=== PATIENT | male | born 1960 | race Caucasian/White ===

== ENCOUNTER 2017-12-28 12:27 | Emergency (ER) | payer MEDICARE ==
[2017-12-28 12:40] VITALS: TEMP 98.8; BMI 34.5
[2017-12-28] MEDS ORDERED: ASPIRIN 81 MG CHEWABLE TABLETS PO ONE (12:53)
--- NOTE | 2017-12-28 13:11 | PDOC ---
History of Present Illness - General Chief Complaint: Chest Pain Stated Complaint: CHEST PAIN Time Seen by Provider: 12/28/17 12:42 History Source: Patient Exam Limitations: No Limitations - History of Present Illness Initial Comments: 12/28/17 13:01 Patient is a 57M with history of HTN, DM, HLD here today complaining of chronic intermittent chest pain, worsening over the past 7 days. He describes the pain as a pressure over his chest without any known exacerbating or relieving factors. Denies shortness of breath, endorses episodes of diaphoresis. Pain lasts a few minutes before self-resolving. Patient had stress test done on showed no evidence of exercise induced ischemia with EF of 67%. Patient states that flew in from [place] 3 weeks ago. Denies fevers, chills, nausea, vomiting. Denies leg swelling and history of prior blood clots. Takes baby aspirin everyday. Past History - Past Medical History Allergies/Adverse Reactions: Allergies Allergy/AdvReac Type Severity Reaction Status Date / Time No Known Allergies Allergy Verified 12/28/17 12:37 Home Medications: Ambulatory Orders Valsartan/Hydrochlorothiazide [Diovan Hct 160-12.5 mg Tablet] 1 combo PO DAILY 03/08/13 Aspirin [ASA -] 81 mg PO DAILY #0 tab.chew 03/12/13 Atorvastatin Ca [Lipitor] 40 mg PO HS #0 tablet 03/12/13 Canagliflozin [Invokana] 100 mg PO DAILY 12/28/17 Insulin Glargine,Hum.rec.anlog [Toujeo Solostar] 60 unit SQ DAILY 12/28/17 Insulin Lispro [Humalog] 20 unit SQ BID 12/28/17 Linagliptin/Metformin HCl [Jentadueto 2.5 mg-500 mg Tab] 1 each PO DAILY Cardiac Disorders: Yes (ENLARGED HEART) COPD: No Diabetes: Yes Disorders: Yes (Kidney Stones) HTN: Yes Hypercholesterolemia: Yes - Surgical History Orthopedic Surgery: Yes (R. Rotator cuff) - Suicide/Smoking/Psychosocial Hx Smoking Status: No Smoking History: Never smoked Have you smoked in the past 12 months: No Number of Cigarettes Smoked Daily: 0 Hx Alcohol Use: No Drug/Substance Use Hx: No Substance Use Type: None Hx Substance Use Treatment: No Review of Systems - Review of Systems Comments:: 12/28/17 13:11 GENERAL/CONSTITUTIONAL: No fever or chills. No weakness. HEAD, EYES, EARS, NOSE AND THROAT: No change in vision. No sore throat. CARDIOVASCULAR: Positive for chest pain. Negative for shortness of breath RESPIRATORY: No cough, wheezing, or hemoptysis. GASTROINTESTINAL: No nausea, vomiting, diarrhea or constipation. GENITOURINARY: No dysuria, frequency, or change in urination. MUSCULOSKELETAL: No joint or muscle swelling or pain. No neck or back pain. SKIN: No rash NEUROLOGIC: No headache, vertigo, loss of consciousness, or change in strength/ sensation. HEMATOLOGIC/LYMPHATIC: No anemia, easy bleeding, or history of blood clots. ALLERGIC/IMMUNOLOGIC: No hives or skin allergy. *Physical Exam - Vital Signs Last Vital Signs Temp Pulse Resp BP Pulse Ox 98.8 F 80 18 132/83 98 12/28/17 12:37 12/28/17 12:37 12/28/17 12:37 12/28/17 12:37 12/28/17 12:37 - Physical Exam Comments: 12/28/17 13:11 GENERAL: Awake, alert, and fully oriented, in no acute distress HEAD: No signs of trauma, normocephalic, atraumatic EYES: PERRLA, EOMI, sclera anicteric, conjunctiva clear ENT: Auricles normal inspection, hearing grossly normal, nares patent, oropharynx clear without exudates. Moist mucosa NECK: Normal ROM, supple, no lymphadenopathy, JVD, or masses LUNGS: No distress, speaks full sentences, clear to auscultation bilaterally HEART: Regular rate and rhythm, normal S1 and S2, no murmurs, rubs or gallops, peripheral pulses normal and equal bilaterally. ABDOMEN: Soft, nontender, normoactive bowel sounds. No guarding, no rebound. No masses EXTREMITIES: Normal inspection, Normal range of motion, no edema. No clubbing or cyanosis. NEUROLOGICAL: Cranial nerves II through XII grossly intact. Normal speech, normal gait, no focal sensorimotor deficits SKIN: Warm, Dry, normal turgor, no rashes or lesions noted. Heart Score/ECG Review - History History: Slightly suspicious - Electrocardiogram EKG: Normal - Age Age: 45-65 - Risk Factors Risk Factors Heart Score: Yes Hx Hypercholesterolemia, Yes Hx Hypertension, Yes Hx Diabetes Based on the list above the patient has:: >/=3 risk factors or Hx atherosclerotic disease - Troponin Troponin: </= normal limit - Score Heart Score - Total: 3 ED Treatment Course - LABORATORY CBC & Chemistry Diagram: 12/28/17 13:06 12/28/17 13:06 - RADIOLOGY Radiology Studies Ordered: Category Date Time Status CHEST X-RAY PORTABLE* [RAD] Stat Radiology 12/28/17 12:54 Ordered Medical Decision Making - Medical Decision Making 12/28/17 13:12 Patient is 57M with history of HTN, HLD, DM here today complaining of chronic intermittent chest pain. Story not typical. Vital signs stable and normal. Patient had prior stress test two weeks ago that was normal. DDx includes, but is not limited to: ACS, arrhythmia, PE. Unable to PERC out due to age, Well's low risk, recent travel. Will d-dimer. EKG shows normal sinus rhythm with rate of 88. No S1Q3T3, no signs of right heart strain. No st elevations/depressions. No significant t wave abnormalities. Normal axis. Normal WI/QRS/QTc intervals. Reassuring EKG. 12/28/17 14:26 Laboratory Tests 12/28/17 12/28/17 12/28/17 13:06 13:06 13:06 WBC 9.7 Hgb 14.7 D Plt Count 270 D D-Dimer 322 Troponin I < 0.02 CBC normal. D-dimer negative. Troponin undetectable. Will discharge patient with return precautions. *DC/Admit/Observation/Transfer Diagnosis at time of Disposition: Chest pain - Discharge Dispostion Condition at time of disposition: Good Decision to Admit order: No - Referrals Referrals: Randy Crowley [Primary Care Provider] - - Patient Instructions Printed Discharge Instructions: DI for Chest Pain Additional Instructions: Please return if you have any new, worsening or concerning symptoms, especially increasing pain or shortness of breath. Please follow up with your primary care physician. - Post Discharge Activity
[2017-12-28] MEDS ORDERED: ASPIRIN 81 MG CHEWABLE TABLETS ONE (13:12)
[2017-12-28 13:23] LABS: BASO % 0.5 % (0-2.0); EOS % 0.7 % (0-4.5); HEMOGLOBIN 14.7 GM/dL (11.7-16.9); LYMPH % 28.8 % (8-40); MCH 29.3 pg (25.7-33.7); MCHC 34.1 g/dl (32.0-35.9); MEAN CELL VOLUME 85.9 fl (80-96); MEAN PLT VOLUME 9.2 fl (7.5-11.1); MONO % 8.2 % (3.8-10.2); NEUT % 61.8 % (42.8-82.8); PLATELET COUNT 270 K/MM3 (134-434); RBC 5.01 M/mm3 (4.00-5.60); RDW 14.3 % (11.9-15.9); WHITE BLOOD COUNT 9.7 K/mm3 (4.0-10.0)
[2017-12-28 13:48] LABS: INR 1.02 (0.82-1.09); PROTHROMBIN TIME (PATIENT) 11.5 SEC (9.7-13.0)
[2017-12-28 13:55] LABS: ALBUMIN 4.3 g/dl (3.4-5.0); ALK PHOS 71 U/L (45-117); ANION GAP 11 (8-16); BILIRUBIN,TOTAL 0.6 mg/dL (0.2-1.0); CALCIUM 9.2 mg/dL (8.5-10.1); CHLORIDE 94 mmol/L (98-107); CO2 28 mmol/L (21-32); CREATININE 0.8 mg/dL (0.7-1.3); GLUCOSE,RANDOM 147 mg/dL (74-106); MAGNESIUM 2.4 mg/dL (1.8-2.4); POTASSIUM 4.3 mmol/L (3.5-5.1); SGOT/AST 24 U/L (15-37); SGPT/ALT 37 U/L (12-78); SODIUM 133 mmol/L (136-145); TOT PROT 8.3 g/dl (6.4-8.2)
[2017-12-28 14:03] LABS: BLOOD UREA NITROGEN 18 mg/dL (7-18)
--- NOTE | 2017-12-28 14:45 | PDOC ---
Attending Attestation - HPI HPI: 12/28/17 14:51 The patient is a 57 year old year old male with history of hypertension, hyperlidemia, DM, who presents to the ED complaining of approximately 7 days of chest pain. Chest pain is intermittent with episodes lasting several minutes, worse with bending over and associated with nausea and diaphoresis, and improved with walking. States this has been an ongoing issue. He was sent for a stress test by a direct care specialist and is awaiting his results. No fever or chills. No vomiting. No peripheral edema or palpitations. No history of DVT. He states he did recently return from [place]. - Physicial Exam PE: 12/28/17 14:54 Vitals: Triage vital signs reviewed General Appearance: No acute distress, well nourished, well developed Head: Atraumatic Eyes: Pupils equal reactive round, extraocular movement intact Neck: Supple; No nuchal rigidity Chest Wall: Nontender Cardiac: Regular rate and rhythm, no murmurs, no rubs, no gallops Lungs: Clear to auscultation bilateral, good air movement bilaterally Abdomen: Soft, nondistended, normal bowel sounds, nontender to palpation Extremities: Full range of motion to all extremities, no cyanosis, clubbing, or edema Skin: Warm and dry, no rashes or lesions, no rash, no petechiae Neuro: AOX3; Cranial Nerves 2-12 grossly intact, Strength intact to all extremities, Sensation intact to all extremities, gait normal Psych: Normal mood, normal affect - Medical Decision Making 12/28/17 14:55 The patient is a 57 year old year old male with history of hypertension, hyperlidemia, DM, who presents to the ED complaining of approximately 7 days of chest pain. Stress test from 12/16/17 reviewed: normal perfusion with no evidence of stress induced ischemia. Chest x-ray demonstrates no acute pathology. Labs reviewed. Documentation prepared by Solange Phelan, acting as medical record specialist for John Hernandez MD. <Solange Phelan - Last Filed: 12/28/17 14:56> - Resident Resident Name: Rom Regan - ED Attending Attestation I have performed the following: I have examined & evaluated the patient, The case was reviewed & discussed with the resident, I agree w/resident's findings & plan, Exceptions are as noted - Medical Decision Making 12/28/17 17:15 Heart score 3. D-dimer negative. Well-appearing no apparent distress mild chest discomfort when bending over. Improves with exertion. Very low suspicion for ACS or PE Patient's recent stress test reviewed also results were within normal limits. Findings, the need for follow-up, strict return instructions discussed with patient. <John Hernandez - Last Filed: 12/28/17 17:16> Heart Score/ECG Review - ECG Impressions Comment:: 12/28/17 17:15 EKG performed at 1237. Demonstrates sinus rhythm 88 bpm. MO 154 QRS 86, QTC 464. No ST elevations no T-wave inversions. Normal axis. Interpreted by me. <John Hernandez - Last Filed: 12/28/17 17:16>
[2017-12-28 14:52] VITALS: BP 133/87; PULSE 85
--- NOTE | 2017-12-28 20:44 | EKG ---
Test Reason : Blood Pressure : / mmHG Vent. Rate : 088 BPM Atrial Rate : 088 BPM P-R Int : 154 ms QRS Dur : 086 ms QT Int : 384 ms P-R-T Axes : 021 059 031 degrees QTc Int : 464 ms NORMAL SINUS RHYTHM WITH SINUS ARRHYTHMIA CANNOT RULE OUT ANTERIOR INFARCT , AGE UNDETERMINED ABNORMAL ECG WHEN COMPARED WITH ECG OF 09-MAR-2013 15:34, QT HAS LENGTHENED Confirmed by YOLANDE LYLES, EZEKIEL ([id number]) on 12/28/2017 8:44:04 PM Referred By: Confirmed By:EZEKIEL LANIER MD
== END 2017-12-28 14:52 | disposition home or self-care (01) ==
LOC: JER 12:27
DX: R07.9 Chest pain, unspecified (principal); I10 Essential (primary) hypertension; E78.00 Pure hypercholesterolemia, unspecified; E11.9 Type 2 diabetes mellitus without complications; Z79.4 Long term (current) use of insulin; Z79.84 Long term (current) use of oral hypoglycemic drugs; I51.7 Cardiomegaly; Z87.442 Personal history of urinary calculi
CPT/HCPCS: 36415; 71045-TC-FY; 80053; 82550; 82553; 83735; 84484; 85025; 85379; 85610; 93005; 93010; 99283-25

== ENCOUNTER 2019-02-01 11:56 | Inpatient (IN) | payer MEDICARE, OTHER ==
--- NOTE | 2019-02-01 13:06 | PDOC ---
History of Present Illness - General Chief Complaint: Urinary Problem Stated Complaint: SENT BY PCP Time Seen by Provider: 02/01/19 13:04 History Source: Patient Exam Limitations: No Limitations - History of Present Illness Initial Comments: 58 yo M history HTN, HL, DM, urethral problem (unclear on his official diagnosis ) presents with L testicular pain for the past 3 days. He states the pain is severe when he stands up, but improves when he lies down. Denies any injury. No prior similar symptoms. He has history of urinary tract infections in the past, has had cystoscopies in the past to dilate (poss urethal stricture?). He states he has not had any difficulty urinating recently, but that his urine has been malodorous. He states his pain also started soon after lifting something heavy, concerned that he may have developed a hernia. Denies dysuria, fever, back pain. He has been taking tylenol for the pain, which helps as long as he does not stand up. No prior similar symptoms. Past History - Past Medical History Allergies/Adverse Reactions: Allergies Allergy/AdvReac Type Severity Reaction Status Date / Time No Known Allergies Allergy Verified 02/01/19 16:22 Home Medications: Ambulatory Orders Atorvastatin Ca [Lipitor] 40 mg PO HS 02/01/19 Finasteride [Proscar -] 5 mg PO DAILY 02/01/19 Icosapent Ethyl [Vascepa] 1 gm PO DAILY 02/01/19 Insulin Glargine,Hum.rec.anlog [Basaglar Kwikpen U-100] 60 unit SQ DAILY Insulin Lispro [Humalog] 15 unit SQ AC 02/01/19 Olmesartan Medoxomil [Benicar (Nf)] 40 mg PO DAILY 02/01/19 Cardiac Disorders: Yes (ENLARGED HEART) COPD: No Diabetes: Yes Disorders: Yes (Kidney Stones) HTN: Yes Hypercholesterolemia: Yes - Surgical History Orthopedic Surgery: Yes (R. Rotator cuff) - Suicide/Smoking/Psychosocial Hx Smoking Status: No Smoking History: Never smoked Have you smoked in the past 12 months: No Number of Cigarettes Smoked Daily: 0 Hx Alcohol Use: No Drug/Substance Use Hx: No Substance Use Type: None Hx Substance Use Treatment: No Review of Systems - Review of Systems Able to Perform ROS?: Yes Comments:: GENERAL/CONSTITUTIONAL: No fever or chills. No weakness. HEAD, EYES, EARS, NOSE AND THROAT: No change in vision. No ear pain or discharge. No sore throat. CARDIOVASCULAR: No chest pain or shortness of breath. RESPIRATORY: No cough, wheezing, or hemoptysis. GASTROINTESTINAL: No nausea, vomiting, diarrhea or constipation. GENITOURINARY: No dysuria, frequency. +L testicular pain. MUSCULOSKELETAL: No joint or muscle swelling or pain. No neck or back pain. SKIN: No rash. NEUROLOGIC: No headache, vertigo, loss of consciousness, or change in strength/ sensation. ENDOCRINE: No increased thirst. No abnormal weight change. HEMATOLOGIC/LYMPHATIC: No anemia, easy bleeding, or history of blood clots. ALLERGIC/IMMUNOLOGIC: No hives or skin allergy. *Physical Exam - Vital Signs Last Vital Signs Temp Pulse Resp BP Pulse Ox 98.6 F 82 18 132/75 97 02/01/19 12:16 02/01/19 12:16 02/01/19 12:16 02/01/19 12:16 02/01/19 12:16 - Physical Exam Comments: GENERAL: Awake, alert, and fully oriented, in no acute distress HEAD: No signs of trauma EYES: PERRLA, EOMI, sclera anicteric, conjunctiva clear ENT: Auricles normal inspection, hearing grossly normal, nares patent, oropharynx clear without exudates. Moist mucosa NECK: Normal ROM, supple, no lymphadenopathy, JVD, or masses LUNGS: Breath sounds equal, clear to auscultation bilaterally. No wheezes, and no crackles HEART: Regular rate and rhythm, normal S1 and S2, no murmurs, rubs or gallops ABDOMEN: Soft, nontender, normoactive bowel sounds. No guarding, no rebound. No masses EXTREMITIES: Normal range of motion, no edema. No clubbing or cyanosis. No cords, erythema, or tenderness NEUROLOGICAL: Cranial nerves II through XII grossly intact. Normal speech, normal gait. Motor and sensation intact SKIN: Warm, Dry, normal turgor, no rashes or lesions noted : +L testicular swelling, erythema, and tenderness. No masses palpated. No palpable hernia masses. ED Treatment Course - LABORATORY CBC & Chemistry Diagram: 02/04/19 07:17 02/04/19 07:17 Medical Decision Making - Medical Decision Making 02/01/19 14:24 Pt with L testicular pain and swelling, history of prior UTIs. High suspicion for epididymitis. Will obtain ultrasound to further evaluate. 02/01/19 15:23 Pt with positive UA, will give rocephin. Awaiting sono results. 02/01/19 17:09 Pt care d/w Dr. Littlejohn. Will admit for epididymitis, as patient is unable to stand due to severe pain. Will give IV abx. *DC/Admit/Observation/Transfer Diagnosis at time of Disposition: Acute epididymitis - Discharge Dispostion Condition at time of disposition: Stable Decision to Admit order: Yes - Referrals - Patient Instructions - Post Discharge Activity
[2019-02-01] MEDS ORDERED: ACETAMINOPHEN 1000 MG/100 ML VIAL (NON FORMULARY) IVPB ONE (14:24)
[2019-02-01 14:41] LABS: EPI CELLS 2.7 /HPF (0-5/HPF); HYALINE CASTS 3 /lpf (0-8); URINE APPEARANCE CLOUDY; URINE BACTERIA 465.8 /hpf (NEGATIVE); URINE BILIRUBIN NEGATIVE (NEGATIVE); URINE COLOR YELLOW; URINE GLUCOSE (UA) 1+ (NEGATIVE); URINE KETONE TRACE (NEGATIVE); URINE LEUK ESTERASE 3+ (NEGATIVE); URINE NITRITE POSITIVE (NEGATIVE); URINE PROTEIN 2+ (NEGATIVE); URINE RBC 13 /hpf (0-4); URINE WBC 535 /hpf (0-5)
[2019-02-01] MEDS ORDERED: ACETAMINOPHEN INJECTION 100 ML IVPB ONE (14:49)
[2019-02-01 15:01] LABS: BASO % 1.3 % (0-2.0); EOS % 0.1 % (0-4.5); HEMATOCRIT 40.8 % (35.4-49); HEMOGLOBIN 13.7 GM/dL (11.7-16.9); LYMPH % 12.1 % (8-40); MCHC 33.5 g/dl (32.0-35.9); MEAN CELL VOLUME 86.6 fl (80-96); MEAN PLT VOLUME 8.5 fl (7.5-11.1); MONO % 6.4 % (3.8-10.2); NEUT % 80.1 % (42.8-82.8); PLATELET COUNT 248 K/MM3 (134-434); RBC 4.71 M/mm3 (4.00-5.60); RDW 14.1 % (11.9-15.9); WHITE BLOOD COUNT 15.4 K/mm3 (4.0-10.0)
[2019-02-01 15:02] LABS: YEAST NONE SEEN (NEGATIVE)
[2019-02-01 15:15] LABS: INR 1.17 (0.83-1.09); PROTHROMBIN TIME (PATIENT) 13.8 SEC (9.7-13.0)
[2019-02-01 15:23] LABS: ALBUMIN 3.7 g/dl (3.4-5.0); BILIRUBIN,TOTAL 0.6 mg/dL (0.2-1); BLOOD UREA NITROGEN 19.4 mg/dL (7-18); CALCIUM 9.4 mg/dL (8.5-10.1); CREATININE 0.9 mg/dL (0.55-1.3); POTASSIUM 4.2 mmol/L (3.5-5.1); TOT PROT 8.2 g/dl (6.4-8.2)
[2019-02-01] MEDS ORDERED: CEFTRIAXONE 1 GM in DEXTROSE 5%-WATER - 50 ML IVPB ONE ×2 (15:23→22:39)
[2019-02-01] MEDS ORDERED: CEFTRIAXONE 1 GM/50 ML BAG ONE (15:39)
[2019-02-01] MEDS ORDERED: morphine SULFATE 4 MG/ML VIAL IVPUSH PRN (17:21)
--- NOTE | 2019-02-01 17:25 | HP ---
Admitting History and Physical - Primary Care Physician PCP: Soledad Littlejohn - Admission Chief Complaint: TESTICULAR PAIN FOR 3 DAYS WITH FLANK PAIN History of Present Illness: 58 Y/O MALE HISTORY OF DM/HTN/LIPIDEMIA AND MORBID OBESITY HERE WITH 3 DAYS OF EXCRUCIATING TESTICULAR/FLANK PAIN SINCE FRIDAY NIGHT. PATIENT REFUSED TO COME TO [facility] UNTIL HE SPOKE TO ME THIS MORNING WHERE I DIRECTED HIM TO THE E.R. RADIOLOGY TESTING SHOWS EPIDIDIMITIS AND WAS STARTED ON IV ABX. History Source: Patient Limitations to Obtaining History: No Limitations - Past Medical History Cardiovascular: Yes: HTN, Hyperlipdemia Renal/: Yes: Other Endocrine: Yes: Diabetes Mellitus - Smoking History Smoking history: Never smoked Have you smoked in the past 12 months: No Aproximately how many cigarettes per day: 0 - Alcohol/Substance Use Hx Alcohol Use: No Home Medications - Allergies Allergies/Adverse Reactions: Allergies Allergy/AdvReac Type Severity Reaction Status Date / Time No Known Allergies Allergy Verified 02/01/19 16:22 - Home Medications Home Medications: Ambulatory Orders Atorvastatin Ca [Lipitor] 40 mg PO HS 02/01/19 Finasteride [Proscar -] 5 mg PO DAILY 02/01/19 Icosapent Ethyl [Vascepa] 1 gm PO DAILY 02/01/19 Insulin Glargine,Hum.rec.anlog [Basaglar Kwikpen U-100] 60 unit SQ DAILY Insulin Lispro [Humalog] 15 unit SQ AC 02/01/19 Olmesartan Medoxomil [Benicar (Nf)] 40 mg PO DAILY 02/01/19 Review of Systems - Review of Systems Constitutional: reports: Weakness Neck: reports: No Symptoms Cardiovascular: reports: No Symptoms Respiratory: reports: No Symptoms Gastrointestinal: reports: Abdominal Pain Genitourinary: reports: Testicular Pain Musculoskeletal: reports: Back Pain Integumentary: reports: No Symptoms Neurological: reports: No Symptoms Endocrine: reports: No Symptoms Hematology/Lymphatic: reports: No Symptoms Psychiatric: reports: No Symptoms Physical Examination Vital Signs: Vital Signs Temperature 98.6 F 02/01/19 12:16 Pulse Rate 82 02/01/19 12:16 Respiratory Rate 18 02/01/19 12:16 Blood Pressure 132/75 02/01/19 12:16 O2 Sat by Pulse Oximetry (%) 97 02/01/19 12:16 Constitutional: Yes: Severe Distress Eyes: Yes: WNL HENT: Yes: WNL Neck: Yes: WNL Cardiovascular: Yes: WNL Respiratory: Yes: WNL Gastrointestinal: Yes: Tenderness ...Rectal Exam: Yes: WNL Renal/: Yes: CVA Tenderness - Right, Scrotal Edema Musculoskeletal: Yes: Back Pain Edema: No Integumentary: Yes: WNL Wound/Incision: Yes: Clean/Dry Neurological: Yes: WNL ...Motor Strength: WNL Psychiatric: Yes: WNL Labs: CBC, BMP 02/01/19 14:40 02/01/19 14:48 Problem List - Problems (1) Acute epididymitis Code(s): N45.1 - EPIDIDYMITIS Assessment/Plan IV CEFTRIAXONE 2GM DAILY ID CONSULT, CULTURES CHECKED PAIN CONTROL CONSULT DVT PROPHYLAXIS DM CONTROL, BGM
[2019-02-01] MEDS ORDERED: ACETAMINOPHEN 325 MG TABLET (FP) ONE (20:51)
[2019-02-01] MEDS: ACETAMINOPHEN 325 MG TABLET (FP) PO PRN (20:54)
[2019-02-01] MEDS ORDERED: DEXTROSE 5%-WATER - 50 ML IVPB ONE (23:15)
[2019-02-01] MEDS ORDERED: cefTRIAXone SODIUM 1 GM VIAL ONE (23:15)
[2019-02-02] MEDS: INSULIN SLIDING SCALE (NOVOLOG) 1 VIAL SQ SCH ×5 (00:01→21:40)
[2019-02-02] MEDS: ATORVASTATIN CA 40 MG TABLET (FP) PO SCH ×2 (00:01→21:41)
[2019-02-02 00:34] VITALS: BMI 31.9
--- NOTE | 2019-02-02 07:03 | PN ---
Progress Note, Physician Chief Complaint: AWAKE ALERT FEVERS DOCUMENTED OVERNIGHT PATIENT AWAKE ALERT FEELS PRESSURE OVER LEFT TESTICLE - Current Medication List Current Medications: Active Medications Acetaminophen (Tylenol -) 650 mg PO Q6H PRN PRN Reason: PAIN OR FEVER Last Admin: 02/01/19 20:54 Dose: 650 mg Atorvastatin Calcium (Lipitor -) 40 mg PO HS DENIS Last Admin: 02/02/19 00:01 Dose: 40 mg Finasteride (Proscar -) 5 mg PO DAILY [facility] Heparin Sodium (Porcine) (Heparin -) 5,000 unit SQ BID DENIS Last Admin: 02/02/19 00:00 Dose: 5,000 unit Ceftriaxone Sodium 2 gm/ (Dextrose) 100 mls @ 200 mls/hr IVPB DAILY [facility]; Protocol Insulin Aspart (Novolog Vial Sliding Scale -) 1 vial SQ ACHS [facility]; Protocol Last Admin: 02/02/19 06:22 Dose: 4 units Insulin Detemir (Levemir Vial) 50 units SQ HS [facility] Last Admin: 02/02/19 00:00 Dose: Not Given Morphine Sulfate (Morphine Sulfate) 4 mg IVPUSH Q6H PRN PRN Reason: PAIN LEVEL 6-10 Last Admin: 02/02/19 06:55 Dose: 4 mg Valsartan (Diovan -) 320 mg PO DAILY [facility] - Objective Vital Signs: Vital Signs Temperature 98.9 F 02/01/19 22:00 Pulse Rate 70 02/01/19 22:00 Respiratory Rate 20 02/01/19 22:00 Blood Pressure 124/69 02/01/19 22:00 O2 Sat by Pulse Oximetry (%) 95 02/01/19 22:00 Constitutional: Yes: Mild Distress Eyes: Yes: WNL HENT: Yes: WNL Neck: Yes: WNL Cardiovascular: Yes: WNL Respiratory: Yes: WNL Gastrointestinal: Yes: WNL Genitourinary: Yes: Other (TESTICULAR) Musculoskeletal: Yes: Other Extremities: Yes: WNL Edema: No Peripheral Pulses WNL: Yes Integumentary: Yes: WNL Wound/Incision: Yes: Clean/Dry Neurological: Yes: WNL ...Motor Strength: WNL Psychiatric: Yes: WNL Labs: CBC, BMP 02/01/19 14:40 02/01/19 14:48 INR, PTT INR 1.17 (0.83-1.09) H 02/01/19 14:40 Problem List - Problems (1) Acute epididymitis Code(s): N45.1 - EPIDIDYMITIS Assessment/Plan IV CEFTRIAXONE 2GM DAILY ID CONSULT, CULTURES CHECKED PAIN CONTROL CONSULT DVT PROPHYLAXIS DM CONTROL, BGM
[2019-02-02] MEDS ORDERED: DEXTROSE 5%-WATER 100 ML IVPB ONE (09:08)
[2019-02-02 09:12] LABS: HEMOGLOBIN 13.2 GM/dL (11.7-16.9); MCH 28.4 pg (25.7-33.7); MEAN CELL VOLUME 86.2 fl (80-96); MEAN PLT VOLUME 8.5 fl (7.5-11.1); PLATELET COUNT 293 K/MM3 (134-434); RBC 4.65 M/mm3 (4.00-5.60); RDW 13.9 % (11.9-15.9); WHITE BLOOD COUNT 12.7 K/mm3 (4.0-10.0)
[2019-02-02] MEDS: FINASTERIDE 5 MG TABLET (FP) PO SCH (09:35)
[2019-02-02] MEDS: CEFTRIAXONE 2 GM in DEXTROSE 5%-WATER 100 ML IVPB SCH (09:35)
[2019-02-02] MEDS: VALSARTAN 160 MG TABLET (UD) PO SCH (09:35)
[2019-02-02] MEDS: HEPARIN NA (PORCINE) 5,000 UNITS/ML 1ML VIAL SQ SCH ×3 (09:35→21:41)
[2019-02-02 09:42] LABS: ALBUMIN 3.5 g/dl (3.4-5.0); BILIRUBIN,TOTAL 0.4 mg/dL (0.2-1); BLOOD UREA NITROGEN 20.4 mg/dL (7-18); CALCIUM 9.3 mg/dL (8.5-10.1); CREATININE 0.9 mg/dL (0.55-1.3); POTASSIUM 4.4 mmol/L (3.5-5.1); TOT PROT 7.9 g/dl (6.4-8.2)
[2019-02-02] MEDS ORDERED: INSULIN (NOVOLOG) ASPART 100 UNITS/ML 10ML VIAL ONE (11:19)
--- NOTE | 2019-02-02 13:54 | CON.GU ---
Consult Consult Specialty:: Referred by:: Annetta Reason for Consultation:: orchitis - History of Present Illness Chief Complaint: orchitis History of Present Illness: 58 year old male who is S/P cystoscopy who presents with epididymo-orchitis. He is voiding ok but is having left testicular discomfort. This is a new complaint - History Source History Provided By: Patient Limitations to Obtaining History: No Limitations - Past Medical History Cardio/Vascular: Yes: HTN, Hyperlipdemia Renal/: Yes: BPH, Other Endocrine: Yes: Diabetes Mellitus - Alcohol/Substance Use Hx Alcohol Use: No - Smoking History Smoking history: Never smoked Have you smoked in the past 12 months: No Aproximately how many cigarettes per day: 0 Home Medications - Allergies Allergies/Adverse Reactions: Allergies Allergy/AdvReac Type Severity Reaction Status Date / Time No Known Allergies Allergy Verified 02/01/19 16:22 - Home Medications Home Medications: Ambulatory Orders Atorvastatin Ca [Lipitor] 40 mg PO HS 02/01/19 Finasteride [Proscar -] 5 mg PO DAILY 02/01/19 Icosapent Ethyl [Vascepa] 1 gm PO DAILY 02/01/19 Insulin Glargine,Hum.rec.anlog [Basaglar Kwikpen U-100] 60 unit SQ DAILY Insulin Lispro [Humalog] 15 unit SQ AC 02/01/19 Olmesartan Medoxomil [Benicar (Nf)] 40 mg PO DAILY 02/01/19 Review of Systems - Review of Systems Genitourinary: reports: Testicular Swelling Physical Exam- Vital Signs: Vital Signs Temperature 99.1 F 02/02/19 06:00 Pulse Rate 73 02/02/19 06:00 Respiratory Rate 20 02/02/19 06:00 Blood Pressure 131/60 02/02/19 06:00 O2 Sat by Pulse Oximetry (%) 97 02/02/19 09:00 Renal/: No: Bladder Distention, CVA Tenderness - Left, CVA Tenderness - Right , Kwon Present Scrotum: Yes: Hydrocele, Tenderness Labs: CBC, BMP 02/02/19 08:45 02/02/19 08:45 Imaging - Results Ultrasound: Report Reviewed Problem List - Problems (1) Acute epididymitis Assessment/Plan: agree with antibiotics. scrotal elevation. switch to PO once afebrile and follow up as outpatient Code(s): N45.1 - EPIDIDYMITIS
[2019-02-02] MEDS: ACETAMINOPHEN 325 MG TABLET (FP) PO PRN (15:47)
--- NOTE | 2019-02-02 17:39 | CON.ID ---
Consult Consult Specialty:: infectious disease Referred by:: dr solorzano Reason for Consultation:: left testicular pain and swelling - History of Present Illness Chief Complaint: left testicular pain and swelling History of Present Illness: 58 yo man with DM history of urethral stricture dilatatin in December- reports he didwell post procedure for about two weeks and then began having rproblems urinatin noted cloudy malodorous urine and difficulty urinating this friday developed testicular pain over he weekend fevers came to ED and was noted to have fever, pyuria and left testicular swelling admitted for IV antibioitcs not sexually active no diarrhea no nausea or vomiting no sob no recent outpt antiiboitcs - History Source History Provided By: Patient Limitations to Obtaining History: No Limitations - Past Medical History Cardio/Vascular: Yes: HTN, Hyperlipdemia Renal/: Yes: BPH, Renal Calculi, Other (urethral stricture) Endocrine: Yes: Diabetes Mellitus - Past Surgical History Additional Surgical History: right rotator cuff surgery - Alcohol/Substance Use Hx Alcohol Use: No - Smoking History Smoking history: Never smoked Have you smoked in the past 12 months: No Aproximately how many cigarettes per day: 0 - Social History Usual Living Arrangement: With Spouse ADL: Independent Place of : Other ([place]) History of Recent Travel: Yes ([employer] [place] in December) Home Medications - Allergies Allergies/Adverse Reactions: Allergies Allergy/AdvReac Type Severity Reaction Status Date / Time No Known Allergies Allergy Verified 02/01/19 16:22 - Home Medications Home Medications: Ambulatory Orders Atorvastatin Ca [Lipitor] 40 mg PO HS 02/01/19 Finasteride [Proscar -] 5 mg PO DAILY 02/01/19 Icosapent Ethyl [Vascepa] 1 gm PO DAILY 02/01/19 Insulin Glargine,Hum.rec.anlog [Basaglar Kwikpen U-100] 60 unit SQ DAILY Insulin Lispro [Humalog] 15 unit SQ AC 02/01/19 Olmesartan Medoxomil [Benicar (Nf)] 40 mg PO DAILY 02/01/19 Family Disease History - Family Disease History Family Disease History: Diabetes: Grandparent Review of Systems - Review of Systems Constitutional: reports: Fever Eyes: reports: No Symptoms HENT: reports: No Symptoms Neck: reports: No Symptoms Cardiovascular: reports: No Symptoms Respiratory: reports: No Symptoms Gastrointestinal: reports: No Symptoms Genitourinary: reports: Discharge, Dysuria, Testicular Pain, Testicular Swelling Musculoskeletal: reports: No Symptoms Integumentary: reports: No Symptoms Neurological: reports: No Symptoms Endocrine: reports: No Symptoms Physical Exam Vital Signs: Vital Signs Temperature 98.9 F 02/02/19 14:00 Pulse Rate 72 02/02/19 14:00 Respiratory Rate 20 02/02/19 14:00 Blood Pressure 119/63 02/02/19 14:00 O2 Sat by Pulse Oximetry (%) 97 02/02/19 09:00 Constitutional: Yes: Well Nourished, No Distress, Calm Eyes: Yes: Conjunctiva Clear, EOM Intact HENT: Yes: Atraumatic, Normocephalic. No: Thrush, Tonsillar Exudate Neck: Yes: Supple, Trachea Midline. No: Lymphadenopathy Cardiovascular: Yes: Regular Rate and Rhythm Respiratory: Yes: Regular, CTA Bilaterally Gastrointestinal: Yes: Normal Bowel Sounds, Soft ...Rectal Exam: Yes: Deferred, Other (left testicular swelling with induration and tenderness to palpation) Renal/: No: CVA Tenderness - Left, CVA Tenderness - Right Musculoskeletal: Yes: WNL Extremities: Yes: WNL Edema: No Integumentary: Yes: WNL Neurological: Yes: WNL, Alert, Oriented Labs: CBC, BMP 02/02/19 08:45 02/02/19 08:45 Imaging - Results Ultrasound: Report Reviewed Problem List - Problems (1) Acute epididymitis Code(s): N45.1 - EPIDIDYMITIS (2) Diabetes Code(s): E11.9 - TYPE 2 DIABETES MELLITUS WITHOUT COMPLICATIONS Assessment/Plan would continue rocephin as ordered not sexually active so doubt STD f/u urine culture would obtain renal/bladder sonogram will need f/u with urologist
[2019-02-02] MEDS: INSULIN (LEVEMIR) 100 UNITS/ML UNITS SQ SCH ×2 (21:42)
[2019-02-03] MEDS: ACETAMINOPHEN 325 MG TABLET (FP) PO PRN ×3 (03:36→20:56)
[2019-02-03] MEDS: INSULIN SLIDING SCALE (NOVOLOG) 1 VIAL SQ SCH ×4 (06:52→21:00)
[2019-02-03] MEDS: INSULIN (LEVEMIR) 100 UNITS/ML UNITS SQ SCH (06:52)
[2019-02-03] MEDS ORDERED: INSULIN (NOVOLOG) ASPART 100 UNITS/ML 10ML VIAL ONE ×2 (06:59→20:46)
--- NOTE | 2019-02-03 08:57 | PN ---
Progress Note, Physician - Current Medication List Current Medications: Active Medications Acetaminophen (Tylenol -) 650 mg PO Q6H PRN PRN Reason: PAIN OR FEVER Last Admin: 02/03/19 03:36 Dose: 650 mg Atorvastatin Calcium (Lipitor -) 40 mg PO HS [facility] Last Admin: 02/02/19 21:41 Dose: 40 mg Finasteride (Proscar -) 5 mg PO DAILY [facility] Last Admin: 02/02/19 09:35 Dose: 5 mg Heparin Sodium (Porcine) (Heparin -) 5,000 unit SQ BID [facility] Last Admin: 02/02/19 21:41 Dose: 5,000 unit Ceftriaxone Sodium 2 gm/ (Dextrose) 100 mls @ 200 mls/hr IVPB DAILY [facility]; Protocol Last Admin: 02/02/19 09:35 Dose: 200 mls/hr Insulin Aspart (Novolog Vial Sliding Scale -) 1 vial SQ ACHS [facility]; Protocol Last Admin: 02/03/19 06:52 Dose: 6 units Insulin Detemir (Levemir Vial) 50 units SQ AM [facility] Last Admin: 02/03/19 06:52 Dose: 50 units Morphine Sulfate (Morphine Sulfate) 4 mg IVPUSH Q6H PRN PRN Reason: PAIN LEVEL 6-10 Last Admin: 02/02/19 06:55 Dose: 4 mg Valsartan (Diovan -) 320 mg PO DAILY [facility] Last Admin: 02/02/19 09:35 Dose: 320 mg - Objective Vital Signs: Vital Signs Temperature 97.8 F 02/03/19 06:00 Pulse Rate 68 02/03/19 06:00 Respiratory Rate 20 02/03/19 06:00 Blood Pressure 108/69 02/03/19 06:00 O2 Sat by Pulse Oximetry (%) 95 02/02/19 21:00 Cardiovascular: Yes: Regular Rate and Rhythm Respiratory: Yes: Regular, CTA Bilaterally Gastrointestinal: Yes: Normal Bowel Sounds, Soft Genitourinary: Yes: Other (testicular pain and swelling) Labs: CBC, BMP 02/02/19 08:45 02/02/19 08:45 INR, PTT INR 1.17 (0.83-1.09) H 02/01/19 14:40 Problem List - Problems (1) Acute epididymitis Assessment/Plan: IV ABX ID AND UROLOGY ON CASE Microbiology 02/01/19 15:30 Urine - Urine Clean Catch Urine Culture - Preliminary Staphylococcus Coagulase Neg Strep Agalactiae Group B Laboratory Tests 02/01/19 02/02/19 14:40 08:45 WBC 15.4 H 12.7 H Code(s): N45.1 - EPIDIDYMITIS (2) Diabetes Assessment/Plan: POOR CONTROL A1C 8.2 ENDO Code(s): E11.9 - TYPE 2 DIABETES MELLITUS WITHOUT COMPLICATIONS
[2019-02-03] MEDS ORDERED: DEXTROSE 5%-WATER 100 ML IVPB ONE (09:11)
[2019-02-03] MEDS: VALSARTAN 160 MG TABLET (UD) PO SCH (09:27)
[2019-02-03] MEDS: HEPARIN NA (PORCINE) 5,000 UNITS/ML 1ML VIAL SQ SCH ×2 (09:28→21:00)
[2019-02-03] MEDS: CEFTRIAXONE 2 GM in DEXTROSE 5%-WATER 100 ML IVPB SCH (09:28)
[2019-02-03] MEDS: FINASTERIDE 5 MG TABLET (FP) PO SCH (09:28)
--- NOTE | 2019-02-03 12:07 | PN ---
Progress Note (short form) - Note Progress Note: feels about the same still scrotal discomfort Vital Signs Period Temp Pulse Resp BP Sys/Parker Pulse Ox Last 24 Hr 97.8 F-98.9 F 68-77 20-20 107-133/63-89 95-97 cor-rrr lungs clear abd soft,nt scrotal swelling about the same - left testicle is tender and indurated ext no edema CBC, BMP 02/02/19 08:45 02/02/19 08:45 Microbiology 02/01/19 15:30 Urine - Urine Clean Catch Urine Culture - Preliminary Staphylococcus Coagulase Neg Strep Agalactiae Group B a/p epididymitis (left) history of urethral stricture continue rocephin, add vancomycin f/u cultures
[2019-02-03] MEDS: VANCOMYCIN HCL 1,250 MG in DEXTROSE 5%-WATER - 250 ML IVPB SCH (13:54)
[2019-02-03] MEDS: ATORVASTATIN CA 40 MG TABLET (FP) PO SCH (21:00)
[2019-02-04] MEDS: VANCOMYCIN HCL 1,250 MG in DEXTROSE 5%-WATER - 250 ML IVPB SCH ×2 (02:15→14:58)
[2019-02-04] MEDS: ACETAMINOPHEN 325 MG TABLET (FP) PO PRN ×3 (03:27→22:47)
[2019-02-04] MEDS: INSULIN (LEVEMIR) 100 UNITS/ML UNITS SQ SCH (06:16)
[2019-02-04] MEDS: INSULIN SLIDING SCALE (NOVOLOG) 1 VIAL SQ SCH ×4 (06:18→22:46)
[2019-02-04] MEDS ORDERED: INSULIN (LEVEMIR) 100 UNITS/ML UNITS SQ ONE (06:58)
[2019-02-04] MEDS ORDERED: INSULIN (NOVOLOG) ASPART 100 UNITS/ML 10ML VIAL ONE ×3 (06:58→21:50)
[2019-02-04 08:02] LABS: BASO % 0.4 % (0-2.0); EOS % 0.9 % (0-4.5); HEMATOCRIT 35.8 % (35.4-49); LYMPH % 21.9 % (8-40); MCH 28.8 pg (25.7-33.7); MCHC 33.4 g/dl (32.0-35.9); MEAN CELL VOLUME 86.1 fl (80-96); MEAN PLT VOLUME 8.2 fl (7.5-11.1); MONO % 6.4 % (3.8-10.2); NEUT % 70.4 % (42.8-82.8); RBC 4.16 M/mm3 (4.00-5.60); RDW 13.7 % (11.9-15.9); WHITE BLOOD COUNT 8.5 K/mm3 (4.0-10.0)
[2019-02-04 08:37] LABS: ALBUMIN 2.9 g/dl (3.4-5.0); BILIRUBIN,TOTAL 0.4 mg/dL (0.2-1); CALCIUM 8.9 mg/dL (8.5-10.1); CREATININE 0.7 mg/dL (0.55-1.3); POTASSIUM 3.9 mmol/L (3.5-5.1); TOT PROT 6.6 g/dl (6.4-8.2)
[2019-02-04 08:48] LABS: PLATELET COUNT 271 K/MM3 (134-434)
--- NOTE | 2019-02-04 09:56 | PN ---
Progress Note (short form) - Note Progress Note: still with scrotal tenderness Vital Signs Period Temp Pulse Resp BP Sys/Parker Pulse Ox Last 24 Hr 98.4 F-98.7 F 61-105 20-20 118-134/66-89 97 cor-rrr lungs decreased bs at bases abd soft,nt ext no edema left scrotal tenderness unchanged-+induration CBC, BMP 02/04/19 07:17 02/04/19 07:17 Microbiology 02/01/19 15:30 Urine - Urine Clean Catch Urine Culture - Preliminary Staphylococcus Coagulase Neg Strep Agalactiae Group B a/p epididymitis (left) history of urethral stricture continue vancomycin and ceftriaxone send urine gc/chlamydia naat add po doxycycline Problem List - Problems (1) Acute epididymitis Code(s): N45.1 - EPIDIDYMITIS (2) Diabetes Code(s): E11.9 - TYPE 2 DIABETES MELLITUS WITHOUT COMPLICATIONS
[2019-02-04] MEDS ORDERED: DEXTROSE 5%-WATER 100 ML IVPB ONE (10:31)
[2019-02-04] MEDS: FINASTERIDE 5 MG TABLET (FP) PO SCH (10:49)
[2019-02-04] MEDS: HEPARIN NA (PORCINE) 5,000 UNITS/ML 1ML VIAL SQ SCH ×2 (10:49→22:49)
[2019-02-04] MEDS: VALSARTAN 160 MG TABLET (UD) PO SCH (10:49)
[2019-02-04] MEDS: CEFTRIAXONE 2 GM in DEXTROSE 5%-WATER 100 ML IVPB SCH (10:50)
[2019-02-04] MEDS: DOXYCYCLINE HYCLATE 100 MG CAPSULE PO SCH ×2 (10:50→18:27)
--- NOTE | 2019-02-04 10:52 | CONSULT ---
Consult Consult Specialty:: Endocrinology Referred by:: Dr Rojas, coverage for Dr Loja Reason for Consultation:: Hyperglycemia - History of Present Illness Chief Complaint: Testicular pain History of Present Illness: This is a 58 yo M with h/o HTN, HLD, T2DM for about 15 years, on Insulin for about 13, urethral problem s/p cystoscopic dilation of urethra and prostate surgery in December presents with L testicular pain for the past 3 days. He states the pain is severe when he stands up, but improves when he lies down. Denies any injury. No prior similar symptoms. He has history of urinary tract infections in the past with intermittent urethral obstruction caused by greenish clot. He states he has not had any difficulty urinating recently, but that his urine has been malodorous. Pt diagnosed with epididymitis and treated with IV Abx. Pt referred for management of hyperglycemia. Pt takes Jentadueto 2.5/500 BID, Basaglar 60 units in AM and Humalog 10 to 15 units BID with meals. No hypos. Last eye exam >one year ago. Was told there was slight bleeding in the eye (?side) which is stable. No visual symptoms. Has occ parethesia of feet. No h/o DM in parents - History Source History Provided By: Patient, Medical Record - Past Medical History Cardio/Vascular: Yes: HTN, Hyperlipdemia Renal/: Yes: BPH, Renal Calculi, Other (urethral stricture) Endocrine: Yes: Diabetes Mellitus - Past Surgical History Additional Surgical History: right rotator cuff surgery - Alcohol/Substance Use Hx Alcohol Use: No - Smoking History Smoking history: Never smoked Have you smoked in the past 12 months: No Aproximately how many cigarettes per day: 0 - Social History Usual Living Arrangement: With Spouse ADL: Independent History of Recent Travel: Yes ([facility] on [place] in December) Home Medications - Allergies Allergies/Adverse Reactions: Allergies Allergy/AdvReac Type Severity Reaction Status Date / Time No Known Allergies Allergy Verified 02/01/19 16:22 - Home Medications Home Medications: Ambulatory Orders Atorvastatin Ca [Lipitor] 40 mg PO HS 02/01/19 Finasteride [Proscar -] 5 mg PO DAILY 02/01/19 Icosapent Ethyl [Vascepa] 1 gm PO DAILY 02/01/19 Insulin Glargine,Hum.rec.anlog [Basaglar Kwikpen U-100] 60 unit SQ DAILY Insulin Lispro [Humalog] 15 unit SQ AC 02/01/19 Olmesartan Medoxomil [Benicar (Nf)] 40 mg PO DAILY 02/01/19 Family Disease History - Family Disease History Family Disease History: Diabetes: Grandparent Review of Systems - Review of Systems Constitutional: reports: Malaise Eyes: reports: No Symptoms HENT: reports: No Symptoms Neck: reports: No Symptoms Cardiovascular: reports: No Symptoms Respiratory: reports: No Symptoms Gastrointestinal: reports: No Symptoms Genitourinary: reports: Testicular Mass, Testicular Pain, Testicular Swelling Musculoskeletal: reports: No Symptoms Integumentary: reports: No Symptoms Neurological: reports: No Symptoms Endocrine: reports: No Symptoms Hematology/Lymphatic: reports: No Symptoms Physical Exam Vital Signs: Vital Signs Temperature 98.6 F 02/04/19 09:19 Pulse Rate 60 02/04/19 09:19 Respiratory Rate 20 02/04/19 09:19 Blood Pressure 113/62 02/04/19 09:19 O2 Sat by Pulse Oximetry (%) 97 02/03/19 21:00 Constitutional: Yes: Calm, Mild Distress Eyes: Yes: Conjunctiva Clear, EOM Intact HENT: Yes: Atraumatic, Normocephalic Neck: Yes: Supple, Trachea Midline Cardiovascular: Yes: Regular Rate and Rhythm Respiratory: Yes: Regular, CTA Bilaterally Gastrointestinal: Yes: Normal Bowel Sounds, Soft Renal/: Yes: Scrotal Edema, Other (Scrotal erythema, swelling and tenderness of left testis.) Breast(s): Yes: WNL Musculoskeletal: Yes: WNL Extremities: Yes: WNL Edema: No Neurological: Yes: Alert, Oriented Labs: CBC, BMP 02/04/19 07:17 02/04/19 07:17 Problem List - Problems (1) Acute epididymitis Code(s): N45.1 - EPIDIDYMITIS (2) Diabetes Code(s): E11.9 - TYPE 2 DIABETES MELLITUS WITHOUT COMPLICATIONS Assessment/Plan AP: Acute Epididymitis T2DM: uncontrolled Diet exercise discussed Diabetes education done BGM QACHS Levemir 50 units daily Increase Novolog coverage Add Januvia 100mg daily
--- NOTE | 2019-02-04 13:08 | PN ---
Progress Note, Physician Chief Complaint: Acute Epididymitis T2DM: uncontrolled History of Present Illness: NAD Seen by ID, urology and endocrinology - Current Medication List Current Medications: Active Medications Acetaminophen (Tylenol -) 650 mg PO Q6H PRN PRN Reason: PAIN OR FEVER Last Admin: 02/04/19 11:19 Dose: 650 mg Atorvastatin Calcium (Lipitor -) 40 mg PO HS [facility] Last Admin: 02/03/19 21:00 Dose: 40 mg Doxycycline Hyclate (Vibramycin -) 100 mg PO BID@1000,1800 [facility] Last Admin: 02/04/19 10:50 Dose: 100 mg Finasteride (Proscar -) 5 mg PO DAILY [facility] Last Admin: 02/04/19 10:49 Dose: 5 mg Heparin Sodium (Porcine) (Heparin -) 5,000 unit SQ BID [facility] Last Admin: 02/04/19 10:49 Dose: 5,000 unit Ceftriaxone Sodium 2 gm/ (Dextrose) 100 mls @ 200 mls/hr IVPB DAILY [facility]; Protocol Last Admin: 02/04/19 10:50 Dose: 200 mls/hr Vancomycin HCl 1,250 mg/ (Dextrose) 250 mls @ 166.667 mls/hr IVPB Q12H [facility]; Protocol Last Admin: 02/04/19 02:15 Dose: 166.667 mls/hr Insulin Aspart (Novolog Vial Sliding Scale -) 1 vial SQ TIDAC [facility]; Protocol Last Admin: 02/04/19 12:19 Dose: 8 units Insulin Aspart (Novolog Vial Sliding Scale -) 1 vial SQ HS [facility]; Protocol Insulin Detemir (Levemir Vial) 50 units SQ AM [facility] Last Admin: 02/04/19 06:16 Dose: 50 units Morphine Sulfate (Morphine Sulfate) 4 mg IVPUSH Q6H PRN PRN Reason: PAIN LEVEL 6-10 Last Admin: 02/02/19 06:55 Dose: 4 mg Sitagliptin Phosphate (Januvia -) 100 mg PO DAILY@0700 [facility] Valsartan (Diovan -) 320 mg PO DAILY [facility] Last Admin: 02/04/19 10:49 Dose: 320 mg - Objective Vital Signs: Vital Signs Temperature 98.6 F 02/04/19 09:19 Pulse Rate 60 02/04/19 09:19 Respiratory Rate 20 02/04/19 09:19 Blood Pressure 113/62 02/04/19 09:19 O2 Sat by Pulse Oximetry (%) 97 02/03/19 21:00 Constitutional: Yes: Well Nourished, No Distress, Calm Cardiovascular: Yes: Regular Rate and Rhythm Respiratory: Yes: Regular Gastrointestinal: Yes: WNL Musculoskeletal: Yes: WNL Extremities: Yes: WNL Edema: No Peripheral Pulses WNL: Yes Neurological: Yes: Alert, Oriented Psychiatric: Yes: Alert, Oriented Labs: CBC, BMP 02/04/19 07:17 02/04/19 07:17 INR, PTT INR 1.17 (0.83-1.09) H 02/01/19 14:40 Problem List - Problems (1) Acute epididymitis Assessment/Plan: -Seen by Urology+ ID -IV abx -Cultures: Microbiology 02/01/19 15:30 Urine - Urine Clean Catch Urine Culture - Preliminary Staphylococcus Coagulase Neg Strep Agalactiae Group B Code(s): N45.1 - EPIDIDYMITIS (2) Diabetes Assessment/Plan: -A1c at 8.2 -Seen by Endocrinology -Diabetic diet -BGM AC HS -Levemir -Novolog sliding scale -Januvia added Code(s): E11.9 - TYPE 2 DIABETES MELLITUS WITHOUT COMPLICATIONS Assessment/Plan see problem list
[2019-02-04] MEDS: ATORVASTATIN CA 40 MG TABLET (FP) PO SCH (22:47)
[2019-02-05] MEDS: VANCOMYCIN HCL 1,250 MG in DEXTROSE 5%-WATER - 250 ML IVPB SCH ×2 (02:20→12:21)
[2019-02-05] MEDS: INSULIN (LEVEMIR) 100 UNITS/ML UNITS SQ SCH ×2 (06:18→21:36)
[2019-02-05] MEDS: INSULIN SLIDING SCALE (NOVOLOG) 1 VIAL SQ SCH ×4 (06:20→21:37)
[2019-02-05] MEDS: sitaGLIPtin PHOSPHATE 50 MG TABLET PO SCH (06:44)
[2019-02-05] MEDS: ACETAMINOPHEN 325 MG TABLET (FP) PO PRN ×2 (08:33→18:34)
--- NOTE | 2019-02-05 08:59 | PN ---
Progress Note (short form) - Note Progress Note: Increased testicular pain on standing FS 200s Vital Signs Period Temp Pulse Resp BP Sys/Parker Pulse Ox Last 24 Hr 97.5 F-98.9 F 57-74 18-20 109-133/56-82 96-98 PE: AOx3 Neck: Supple, No JVD HEENT: EOMI Lungs: CTA CVs: S1S2 Abs: Benign Ext: No edema Neuro: No focal deficit Genitalia: Erythema of scrotum, tender, enlarged left testis CMP Sodium 137 mmol/L (136-145) 02/04/19 07:17 Potassium 3.9 mmol/L (3.5-5.1) 02/04/19 07:17 Chloride 102 mmol/L (98-107) 02/04/19 07:17 Carbon Dioxide 29 mmol/L (21-32) 02/04/19 07:17 Anion Gap 6 MMOL/L (8-16) L 02/04/19 07:17 BUN 15.0 mg/dL (7-18) 02/04/19 07:17 Creatinine 0.7 mg/dL (0.55-1.3) 02/04/19 07:17 Est GFR (CKD-EPI)AfAm 119.72 02/04/19 07:17 Est GFR (CKD-EPI)NonAf 103.30 02/04/19 07:17 POC Glucometer 262 UNITS (80-120) 02/05/19 06:16 Random Glucose 217 mg/dL (74-106) H 02/04/19 07:17 Hemoglobin A1c % 8.2 % (4.2-6.3) H 02/02/19 17:24 Calcium 8.9 mg/dL (8.5-10.1) 02/04/19 07:17 Total Bilirubin 0.4 mg/dL (0.2-1) 02/04/19 07:17 AST 28 U/L (15-37) 02/04/19 07:17 ALT 58 U/L (13-61) 02/04/19 07:17 Alkaline Phosphatase 75 U/L (45-117) 02/04/19 07:17 Total Protein 6.6 g/dl (6.4-8.2) 02/04/19 07:17 Albumin 2.9 g/dl (3.4-5.0) L 02/04/19 07:17 Current Medications Generic Name Dose Route Start Last Admin Trade Name Freq PRN Reason Stop Dose Admin Acetaminophen 650 mg 02/01/19 17:21 02/05/19 08:33 Tylenol - PO 650 mg Q6H PRN Administration PAIN OR FEVER Atorvastatin Calcium 40 mg 02/01/19 22:00 02/04/19 22:47 Lipitor - PO 40 mg HS [facility] Administration Doxycycline Hyclate 100 mg 02/04/19 10:00 02/04/19 18:27 Vibramycin - PO 100 mg BID@1000,1800 [facility] Administration Finasteride 5 mg 02/02/19 10:00 02/04/19 10:49 Proscar - PO 5 mg DAILY [facility] Administration Heparin Sodium (Porcine) 5,000 unit 02/01/19 22:00 02/04/19 22:49 Heparin - SQ Not Given BID [facility] Ceftriaxone Sodium 2 gm/ 100 mls @ 200 mls/hr 02/02/19 10:00 02/04/19 10:50 Dextrose IVPB 200 mls/hr DAILY [facility] Administration Protocol Vancomycin HCl 1,250 mg/ 250 mls @ 166.667 mls/hr 02/03/19 13:00 02/05/19 02: 20 Dextrose IVPB 166.667 mls/hr Q12H [facility] Administration Protocol Insulin Aspart 1 vial 02/04/19 11:00 02/05/19 06:20 Novolog Vial Sliding Scale - SQ 10 units TIDAC [facility] Administration Protocol Insulin Aspart 1 vial 02/04/19 22:00 02/04/19 22:46 Novolog Vial Sliding Scale - SQ 4 units HS [facility] Administration Protocol Insulin Detemir 50 units 02/03/19 07:00 02/05/19 06:18 Levemir Vial SQ 50 units AM [facility] Administration Morphine Sulfate 4 mg 02/01/19 17:21 02/02/19 06:55 Morphine Sulfate IVPUSH 4 mg Q6H PRN Administration PAIN LEVEL 6-10 Sitagliptin Phosphate 100 mg 02/05/19 07:00 02/05/19 06:44 Januvia - PO 100 mg DAILY@0700 [facility] Administration Valsartan 320 mg 02/02/19 10:00 02/04/19 10:49 Diovan - PO 320 mg DAILY [facility] Administration AP: Acute Epididymitis T2DM: uncontrolled Diet exercise discussed Diabetes education done BGM QACHS Levemir 50 units daily in AM, add 12 units Levermir at night Increase Novolog coverage Januvia 100mg daily Problem List - Problems (1) Acute epididymitis Code(s): N45.1 - EPIDIDYMITIS (2) Diabetes Code(s): E11.9 - TYPE 2 DIABETES MELLITUS WITHOUT COMPLICATIONS
[2019-02-05] MEDS ORDERED: DEXTROSE 5%-WATER 100 ML IVPB ONE (09:10)
[2019-02-05] MEDS: VALSARTAN 160 MG TABLET (UD) PO SCH (10:20)
[2019-02-05] MEDS: FINASTERIDE 5 MG TABLET (FP) PO SCH (10:20)
[2019-02-05] MEDS: DOXYCYCLINE HYCLATE 100 MG CAPSULE PO SCH ×2 (10:21→17:29)
[2019-02-05] MEDS: HEPARIN NA (PORCINE) 5,000 UNITS/ML 1ML VIAL SQ SCH ×2 (10:21→21:35)
[2019-02-05] MEDS: CEFTRIAXONE 2 GM in DEXTROSE 5%-WATER 100 ML IVPB SCH (11:30)
[2019-02-05] MEDS ORDERED: INSULIN (NOVOLOG) ASPART 100 UNITS/ML 10ML VIAL ONE (11:37)
[2019-02-05] MEDS ORDERED: PT OWN MED DRAWER 7, Y5N ONE ×2 (12:14→20:53)
--- NOTE | 2019-02-05 13:32 | PN ---
Progress Note (short form) - Note Progress Note: still with scrotal tenderness Vital Signs Period Temp Pulse Resp BP Sys/Parker Pulse Ox Last 24 Hr 97.5 F-99 F 57-74 18-18 109-133/56-82 98 cor-rrr lungs clear abd soft,nt much less left scrotal tenderness and induration ext no edema CBC, BMP 02/04/19 07:17 02/04/19 07:17 Microbiology 02/01/19 15:30 Urine - Urine Clean Catch Urine Culture - Final Staphylococcus Epidermidis Strep Agalactiae Group B a/p epididymitis (left) history of urethral stricture day #4 antibiotics continue ceftriaxone, d/c vancomycin po doxycycline if he continues to improve can change to po augmentin 875 mg po bid for 7 days and doxycycline 100 mg po bid for 7 days scrotal support f/u with urology as outpt please call bck if needed Problem List - Problems (1) Acute epididymitis Code(s): N45.1 - EPIDIDYMITIS (2) Diabetes Code(s): E11.9 - TYPE 2 DIABETES MELLITUS WITHOUT COMPLICATIONS
--- NOTE | 2019-02-05 14:26 | PN ---
Progress Note, Physician Chief Complaint: Acute Epididymitis DM History of Present Illness: Previous notes and events reviewed awake and alert NAD continue to complain of L testicular pain - Current Medication List Current Medications: Active Medications Acetaminophen (Tylenol -) 650 mg PO Q6H PRN PRN Reason: PAIN OR FEVER Last Admin: 02/05/19 08:33 Dose: 650 mg Atorvastatin Calcium (Lipitor -) 40 mg PO HS [facility] Last Admin: 02/04/19 22:47 Dose: 40 mg Doxycycline Hyclate (Vibramycin -) 100 mg PO BID@1000,1800 [facility] Last Admin: 02/05/19 10:21 Dose: 100 mg Finasteride (Proscar -) 5 mg PO DAILY [facility] Last Admin: 02/05/19 10:20 Dose: 5 mg Heparin Sodium (Porcine) (Heparin -) 5,000 unit SQ BID [facility] Last Admin: 02/05/19 10:21 Dose: 5,000 unit Ceftriaxone Sodium 2 gm/ (Dextrose) 100 mls @ 200 mls/hr IVPB DAILY [facility]; Protocol Last Admin: 02/05/19 11:30 Dose: 200 mls/hr Insulin Aspart (Novolog Vial Sliding Scale -) 1 vial SQ HS [facility]; Protocol Last Admin: 02/04/19 22:46 Dose: 4 units Insulin Aspart (Novolog Vial Sliding Scale -) 1 vial SQ TIDAC [facility]; Protocol Last Admin: 02/05/19 11:43 Dose: 14 units Insulin Detemir (Levemir Vial) 50 units SQ AM [facility] Last Admin: 02/05/19 06:18 Dose: 50 units Insulin Detemir (Levemir Vial) 12 units SQ HS [facility] Morphine Sulfate (Morphine Sulfate) 4 mg IVPUSH Q6H PRN PRN Reason: PAIN LEVEL 6-10 Last Admin: 02/02/19 06:55 Dose: 4 mg Sitagliptin Phosphate (Januvia -) 100 mg PO DAILY@0700 [facility] Last Admin: 02/05/19 06:44 Dose: 100 mg Valsartan (Diovan -) 320 mg PO DAILY [facility] Last Admin: 02/05/19 10:20 Dose: 320 mg - Objective Vital Signs: Vital Signs Temperature 99 F 02/05/19 08:54 Pulse Rate 66 02/05/19 08:54 Respiratory Rate 18 02/05/19 09:00 Blood Pressure 129/80 02/05/19 08:54 O2 Sat by Pulse Oximetry (%) 96 02/05/19 09:00 Constitutional: Yes: No Distress, Calm Eyes: Yes: Conjunctiva Clear HENT: Yes: Atraumatic Cardiovascular: Yes: Regular Rate and Rhythm Respiratory: Yes: Regular, CTA Bilaterally Gastrointestinal: Yes: Normal Bowel Sounds, Soft Musculoskeletal: Yes: Muscle Weakness Extremities: Yes: WNL Edema: No Neurological: Yes: Alert, Oriented Psychiatric: Yes: Alert, Oriented Labs: CBC, BMP 02/04/19 07:17 02/04/19 07:17 INR, PTT INR 1.17 (0.83-1.09) H 02/01/19 14:40 Microbiology 02/01/19 15:30 Urine - Urine Clean Catch Urine Culture - Final Staphylococcus Epidermidis Strep Agalactiae Group B Problem List - Problems (1) Acute epididymitis Assessment/Plan: -ID on board -Scrotal US shows increased vascular flow in the left testicle and epididymitis relative to the right compatible with L epididymyo orchitis, small to moderate left hydrocele and small right hydrocele -pain control -scrotal elevation -Ceftriaxone and Vibramycin -urology on board Code(s): N45.1 - EPIDIDYMITIS (2) Diabetes Assessment/Plan: -BGM ACHS -Levemir -Januvia -ISS -diabetic diet Code(s): E11.9 - TYPE 2 DIABETES MELLITUS WITHOUT COMPLICATIONS (3) HTN (hypertension) Assessment/Plan: -Diovan Code(s): I10 - ESSENTIAL (PRIMARY) HYPERTENSION Assessment/Plan see progress notes dvt ppx
[2019-02-05] MEDS: ATORVASTATIN CA 40 MG TABLET (FP) PO SCH (21:37)
[2019-02-06] MEDS: ACETAMINOPHEN 325 MG TABLET (FP) PO PRN ×4 (00:21→21:50)
[2019-02-06] MEDS: INSULIN (LEVEMIR) 100 UNITS/ML UNITS SQ SCH ×2 (06:39→21:51)
[2019-02-06] MEDS: INSULIN SLIDING SCALE (NOVOLOG) 1 VIAL SQ SCH ×4 (06:40→21:51)
[2019-02-06] MEDS: sitaGLIPtin PHOSPHATE 50 MG TABLET PO SCH (06:41)
--- NOTE | 2019-02-06 08:39 | PN ---
Progress Note (short form) - Note Progress Note: Feels better but still with scrotal pain Blood sugar improving Vital Signs Period Temp Pulse Resp BP Sys/Parker Pulse Ox Last 24 Hr 97.5 F-99 F 55-80 18-18 105-149/59-80 95-96 PE: AOx3 Neck: Supple, No JVD HEENT: EOMI Lungs: CTA CVs: S1S2 Abs: Benign Ext: No edema Neuro: No focal deficit Genitalia: Erythema of scrotum, tender, enlarged left testis CMP Sodium 137 mmol/L (136-145) 02/04/19 07:17 Potassium 3.9 mmol/L (3.5-5.1) 02/04/19 07:17 Chloride 102 mmol/L (98-107) 02/04/19 07:17 Carbon Dioxide 29 mmol/L (21-32) 02/04/19 07:17 Anion Gap 6 MMOL/L (8-16) L 02/04/19 07:17 BUN 15.0 mg/dL (7-18) 02/04/19 07:17 Creatinine 0.7 mg/dL (0.55-1.3) 02/04/19 07:17 Est GFR (CKD-EPI)AfAm 119.72 02/04/19 07:17 Est GFR (CKD-EPI)NonAf 103.30 02/04/19 07:17 POC Glucometer 160 UNITS (80-120) 02/06/19 05:49 Random Glucose 217 mg/dL (74-106) H 02/04/19 07:17 Hemoglobin A1c % 8.2 % (4.2-6.3) H 02/02/19 17:24 Calcium 8.9 mg/dL (8.5-10.1) 02/04/19 07:17 Total Bilirubin 0.4 mg/dL (0.2-1) 02/04/19 07:17 AST 28 U/L (15-37) 02/04/19 07:17 ALT 58 U/L (13-61) 02/04/19 07:17 Alkaline Phosphatase 75 U/L (45-117) 02/04/19 07:17 Total Protein 6.6 g/dl (6.4-8.2) 02/04/19 07:17 Albumin 2.9 g/dl (3.4-5.0) L 02/04/19 07:17 Current Medications Generic Name Dose Route Start Last Admin Trade Name Freq PRN Reason Stop Dose Admin Acetaminophen 650 mg 02/01/19 17:21 02/06/19 06:41 Tylenol - PO 650 mg Q6H PRN Administration PAIN OR FEVER Atorvastatin Calcium 40 mg 02/01/19 22:00 02/05/19 21:37 Lipitor - PO 40 mg HS DENIS Administration Doxycycline Hyclate 100 mg 02/04/19 10:00 02/05/19 17:29 Vibramycin - PO 100 mg BID@1000,1800 DENIS Administration Finasteride 5 mg 02/02/19 10:00 02/05/19 10:20 Proscar - PO 5 mg DAILY DENIS Administration Heparin Sodium (Porcine) 5,000 unit 02/01/19 22:00 02/05/19 21:35 Heparin - SQ 5,000 unit BID DENIS Administration Ceftriaxone Sodium 2 gm/ 100 mls @ 200 mls/hr 02/02/19 10:00 02/05/19 11:30 Dextrose IVPB 200 mls/hr DAILY DENIS Administration Protocol Insulin Aspart 1 vial 02/04/19 22:00 02/05/19 21:37 Novolog Vial Sliding Scale - SQ 2 units HS DENIS Administration Protocol Insulin Aspart 1 vial 02/05/19 09:00 02/06/19 06:40 Novolog Vial Sliding Scale - SQ 8 units TIDAC DENIS Administration Protocol Insulin Detemir 50 units 02/03/19 07:00 02/06/19 06:39 Levemir Vial SQ 50 units AM DENIS Administration Insulin Detemir 12 units 02/05/19 22:00 02/05/19 21:36 Levemir Vial SQ 12 units HS DENIS Administration Morphine Sulfate 4 mg 02/01/19 17:21 02/02/19 06:55 Morphine Sulfate IVPUSH 4 mg Q6H PRN Administration PAIN LEVEL 6-10 Sitagliptin Phosphate 100 mg 02/05/19 07:00 02/06/19 06:41 Januvia - PO 100 mg DAILY@0700 DENIS Administration Valsartan 320 mg 02/02/19 10:00 02/05/19 10:20 Diovan - PO 320 mg DAILY DENIS Administration AP: Acute Epididymitis T2DM: uncontrolled Diet exercise discussed Diabetes education done BGM QACHS Levemir 50 units daily in AM, add 12 units Levermir at night Continue current Novolog coverage Januvia 100mg daily Problem List - Problems (1) Acute epididymitis Code(s): N45.1 - EPIDIDYMITIS (2) Diabetes Code(s): E11.9 - TYPE 2 DIABETES MELLITUS WITHOUT COMPLICATIONS
[2019-02-06] MEDS ORDERED: DEXTROSE 5%-WATER 100 ML IVPB ONE (10:14)
[2019-02-06] MEDS: HEPARIN NA (PORCINE) 5,000 UNITS/ML 1ML VIAL SQ SCH ×2 (10:41→21:49)
[2019-02-06] MEDS: CEFTRIAXONE 2 GM in DEXTROSE 5%-WATER 100 ML IVPB SCH (10:41)
[2019-02-06] MEDS: VALSARTAN 160 MG TABLET (UD) PO SCH (10:42)
[2019-02-06] MEDS: DOXYCYCLINE HYCLATE 100 MG CAPSULE PO SCH ×2 (10:43→17:06)
[2019-02-06] MEDS: FINASTERIDE 5 MG TABLET (FP) PO SCH (10:54)
--- NOTE | 2019-02-06 15:51 | PN ---
Progress Note, Physician Chief Complaint: Acute Epididymitis T2DM: uncontrolled History of Present Illness: NAD Seen by ID, urology and endocrinology Feels better, states only feels 10% better Still on IV abx - Current Medication List Current Medications: Active Medications Acetaminophen (Tylenol -) 650 mg PO Q6H PRN PRN Reason: PAIN OR FEVER Last Admin: 02/06/19 12:20 Dose: 650 mg Atorvastatin Calcium (Lipitor -) 40 mg PO HS [facility] Last Admin: 02/05/19 21:37 Dose: 40 mg Doxycycline Hyclate (Vibramycin -) 100 mg PO BID@1000,1800 [facility] Last Admin: 02/06/19 10:43 Dose: 100 mg Finasteride (Proscar -) 5 mg PO DAILY [facility] Last Admin: 02/06/19 10:54 Dose: 5 mg Heparin Sodium (Porcine) (Heparin -) 5,000 unit SQ BID [facility] Last Admin: 02/06/19 10:41 Dose: 5,000 unit Ceftriaxone Sodium 2 gm/ (Dextrose) 100 mls @ 200 mls/hr IVPB DAILY [facility]; Protocol Last Admin: 02/06/19 10:41 Dose: 200 mls/hr Insulin Aspart (Novolog Vial Sliding Scale -) 1 vial SQ HS [facility]; Protocol Last Admin: 02/05/19 21:37 Dose: 2 units Insulin Aspart (Novolog Vial Sliding Scale -) 1 vial SQ TIDAC [facility]; Protocol Last Admin: 02/06/19 12:18 Dose: 8 units Insulin Detemir (Levemir Vial) 50 units SQ AM [facility] Last Admin: 02/06/19 06:39 Dose: 50 units Insulin Detemir (Levemir Vial) 12 units SQ HS [facility] Last Admin: 02/05/19 21:36 Dose: 12 units Morphine Sulfate (Morphine Sulfate) 4 mg IVPUSH Q6H PRN PRN Reason: PAIN LEVEL 6-10 Last Admin: 02/02/19 06:55 Dose: 4 mg Sitagliptin Phosphate (Januvia -) 100 mg PO DAILY@0700 [facility] Last Admin: 02/06/19 06:41 Dose: 100 mg Valsartan (Diovan -) 320 mg PO DAILY [facility] Last Admin: 02/06/19 10:42 Dose: 320 mg - Objective Vital Signs: Vital Signs Temperature 98.3 F 02/06/19 09:35 Pulse Rate 65 02/06/19 09:35 Respiratory Rate 18 02/06/19 09:35 Blood Pressure 150/79 02/06/19 09:35 O2 Sat by Pulse Oximetry (%) 97 02/06/19 09:00 Constitutional: Yes: Well Nourished, No Distress, Calm Cardiovascular: Yes: Regular Rate and Rhythm Respiratory: Yes: Regular Gastrointestinal: Yes: Normal Bowel Sounds, Soft, Abdomen, Obese Genitourinary: Yes: Other (dysuria) Musculoskeletal: Yes: WNL Extremities: Yes: WNL Edema: No Peripheral Pulses WNL: Yes Neurological: Yes: Alert, Oriented Psychiatric: Yes: Alert, Oriented Labs: CBC, BMP 02/04/19 07:17 02/04/19 07:17 INR, PTT INR 1.17 (0.83-1.09) H 02/01/19 14:40 Problem List - Problems (1) Acute epididymitis Assessment/Plan: -Seen by Urology+ ID -IV abx -Cultures: Microbiology 02/01/19 15:30 Urine - Urine Clean Catch Urine Culture - Preliminary Staphylococcus Coagulase Neg Strep Agalactiae Group B Code(s): N45.1 - EPIDIDYMITIS (2) Diabetes Assessment/Plan: -A1c at 8.2 -Seen by Endocrinology -Diabetic diet -BGM AC HS -Levemir -Novolog sliding scale -Januvia added Code(s): E11.9 - TYPE 2 DIABETES MELLITUS WITHOUT COMPLICATIONS Assessment/Plan see problem list
[2019-02-06] MEDS: ATORVASTATIN CA 40 MG TABLET (FP) PO SCH (21:50)
[2019-02-07] MEDS ORDERED: INSULIN (LEVEMIR) 100 UNITS/ML UNITS SQ SCH (00:07)
--- NOTE | 2019-02-07 00:17 | CONSULT ---
Consult Consult Specialty:: endocrine Referred by:: cristin solorzano md Reason for Consultation:: uncontrolled dm - History of Present Illness Chief Complaint: high sugars and testicular pain History of Present Illness: 58 yo M with h/otDM2, insulin requiring,HTN, HLD, , s/p cystoscopy,presenting with epididitomorchitis, L testicular pain, He states the pain is severe when he stands up, he denies any injury. No prior similar symptoms. He has history of urinary tract infections in the past with iv antibiotic.he has had diabetes for over 10years,and treated with combination therapy oral agents as well as high dose insulin without tight control, which he blames diet and lack exercise.he denies hypoglycemia,blurred vision,nausea or vomiting. - Past Medical History Cardio/Vascular: Yes: HTN, Hyperlipdemia Renal/: Yes: BPH, Renal Calculi, Other (urethral stricture) Endocrine: Yes: Diabetes Mellitus - Past Surgical History Additional Surgical History: right rotator cuff surgery - Alcohol/Substance Use Hx Alcohol Use: No - Smoking History Smoking history: Never smoked Have you smoked in the past 12 months: No Aproximately how many cigarettes per day: 0 - Social History Usual Living Arrangement: With Spouse ADL: Independent History of Recent Travel: Yes ([facility] on cruise in December) Home Medications - Allergies Allergies/Adverse Reactions: Allergies Allergy/AdvReac Type Severity Reaction Status Date / Time No Known Allergies Allergy Verified 02/01/19 16:22 - Home Medications Home Medications: Ambulatory Orders Atorvastatin Ca [Lipitor] 40 mg PO HS 02/01/19 Finasteride [Proscar -] 5 mg PO DAILY 02/01/19 Icosapent Ethyl [Vascepa] 1 gm PO DAILY 02/01/19 Insulin Glargine,Hum.rec.anlog [Basaglar Kwikpen U-100] 60 unit SQ DAILY Insulin Lispro [Humalog] 15 unit SQ AC 02/01/19 Olmesartan Medoxomil [Benicar (Nf)] 40 mg PO DAILY 02/01/19 Family Disease History - Family Disease History Family Disease History: Diabetes: Grandparent Review of Systems - Review of Systems Constitutional: reports: Weakness HENT: reports: No Symptoms Neck: reports: No Symptoms Cardiovascular: reports: No Symptoms Respiratory: reports: Exercise Intolerance, SOB on Exertion Gastrointestinal: reports: No Symptoms Genitourinary: reports: Frequency Breasts: reports: No Symptoms Reported Musculoskeletal: reports: No Symptoms Integumentary: reports: No Symptoms Neurological: reports: No Symptoms Physical Exam Vital Signs: Vital Signs Temperature 98.2 F 02/06/19 18:30 Pulse Rate 63 02/06/19 18:30 Respiratory Rate 18 02/06/19 18:30 Blood Pressure 134/79 02/06/19 18:30 O2 Sat by Pulse Oximetry (%) 97 02/06/19 09:00 Constitutional: Yes: Calm Eyes: Yes: EOM Intact HENT: Yes: Normocephalic Neck: Yes: Trachea Midline Cardiovascular: Yes: Regular Rate and Rhythm Respiratory: Yes: CTA Bilaterally Gastrointestinal: Yes: Normal Bowel Sounds ...Rectal Exam: Yes: Deferred Renal/: Yes: WNL, CVA Tenderness - Right Breast(s): Yes: WNL Labs: CBC, BMP 02/04/19 07:17 02/04/19 07:17 Problem List - Problems (1) Acute epididymitis Code(s): N45.1 - EPIDIDYMITIS (2) Diabetes Code(s): E11.9 - TYPE 2 DIABETES MELLITUS WITHOUT COMPLICATIONS (3) HTN (hypertension) Code(s): I10 - ESSENTIAL (PRIMARY) HYPERTENSION (4) Chest pain Code(s): R07.9 - CHEST PAIN, UNSPECIFIED Assessment/Plan Current Active Problems diabetes mellitus half-way use insulin Acute epididymitis (Acute) Diabetes (Acute) HTN (hypertension) (Acute) Laboratory Results - last 24 hr 02/06/19 02/06/19 02/06/19 05:49 12:01 16:49 POC Glucometer 160 184 149 02/06/19 21:27 POC Glucometer 236 plan: levemir bid doses increase,hs levemir 20units Current Medications Generic Name Dose Route Start Last Admin Trade Name Freq PRN Reason Stop Dose Admin Acetaminophen 650 mg 02/01/19 17:21 02/06/19 21:50 Tylenol - PO 650 mg Q6H PRN Administration PAIN OR FEVER Atorvastatin Calcium 40 mg 02/01/19 22:00 02/06/19 21:50 Lipitor - PO 40 mg HS DENIS Administration Doxycycline Hyclate 100 mg 02/04/19 10:00 07/06/19 17:06 Vibramycin - PO 100 mg BID@1000,1800 DENIS Administration Finasteride 5 mg 02/02/19 10:00 02/06/19 10:54 Proscar - PO 5 mg DAILY [facility] Administration Heparin Sodium (Porcine) 5,000 unit 02/01/19 22:00 02/06/19 21:49 Heparin - SQ 5,000 unit BID DENIS Administration Ceftriaxone Sodium 2 gm/ 100 mls @ 200 mls/hr 02/02/19 10:00 02/06/19 10:41 Dextrose IVPB 200 mls/hr DAILY [facility] Administration Protocol Insulin Aspart 1 vial 02/04/19 22:00 02/06/19 21:51 Novolog Vial Sliding Scale - SQ 2 units HS [facility] Administration Protocol Insulin Aspart 1 vial 02/05/19 09:00 02/06/19 17:05 Novolog Vial Sliding Scale - SQ 5 units TIDAC [facility] Administration Protocol Insulin Detemir 50 units 02/03/19 07:00 02/06/19 06:39 Levemir Vial SQ 50 units AM DENIS Administration Insulin Detemir 20 units 02/07/19 00:07 Levemir Vial SQ HS [facility] Morphine Sulfate 4 mg 02/01/19 17:21 02/02/19 06:55 Morphine Sulfate IVPUSH 4 mg Q6H PRN Administration PAIN LEVEL 6-10 Sitagliptin Phosphate 100 mg 02/05/19 07:00 02/06/19 06:41 Januvia - PO 100 mg DAILY@0700 [facility] Administration Valsartan 320 mg 02/02/19 10:00 02/06/19 10:42 Diovan - PO 320 mg DAILY DENIS Administration
[2019-02-07] MEDS: sitaGLIPtin PHOSPHATE 50 MG TABLET PO SCH (06:47)
[2019-02-07] MEDS: ACETAMINOPHEN 325 MG TABLET (FP) PO PRN (06:47)
[2019-02-07] MEDS: INSULIN (LEVEMIR) 100 UNITS/ML UNITS SQ SCH (06:47)
[2019-02-07] MEDS: INSULIN SLIDING SCALE (NOVOLOG) 1 VIAL SQ SCH ×2 (06:52→12:18)
[2019-02-07] MEDS ORDERED: DEXTROSE 5%-WATER 100 ML IVPB ONE (09:44)
[2019-02-07] MEDS: HEPARIN NA (PORCINE) 5,000 UNITS/ML 1ML VIAL SQ SCH (10:11)
[2019-02-07] MEDS: DOXYCYCLINE HYCLATE 100 MG CAPSULE PO SCH (10:11)
[2019-02-07] MEDS: FINASTERIDE 5 MG TABLET (FP) PO SCH (10:11)
[2019-02-07] MEDS: CEFTRIAXONE 2 GM in DEXTROSE 5%-WATER 100 ML IVPB SCH ×2 (10:12→14:27)
[2019-02-07] MEDS: VALSARTAN 160 MG TABLET (UD) PO SCH (10:18)
--- NOTE | 2019-02-07 11:48 | PN ---
Progress Note, Physician Chief Complaint: Acute Epididymitis T2DM: uncontrolled History of Present Illness: NAD Seen by ID, urology and endocrinology Feels better, states only feels 10% better Still on IV abx - Current Medication List Current Medications: Active Medications Acetaminophen (Tylenol -) 650 mg PO Q6H PRN PRN Reason: PAIN OR FEVER Last Admin: 02/07/19 06:47 Dose: 650 mg Atorvastatin Calcium (Lipitor -) 40 mg PO HS [facility] Last Admin: 02/06/19 21:50 Dose: 40 mg Doxycycline Hyclate (Vibramycin -) 100 mg PO BID@1000,1800 [facility] Last Admin: 02/07/19 10:11 Dose: 100 mg Finasteride (Proscar -) 5 mg PO DAILY [facility] Last Admin: 02/07/19 10:11 Dose: 5 mg Heparin Sodium (Porcine) (Heparin -) 5,000 unit SQ BID [facility] Last Admin: 02/07/19 10:11 Dose: 5,000 unit Ceftriaxone Sodium 2 gm/ (Dextrose) 100 mls @ 200 mls/hr IVPB DAILY [facility]; Protocol Last Admin: 02/07/19 10:12 Dose: 200 mls/hr Insulin Aspart (Novolog Vial Sliding Scale -) 1 vial SQ HS [facility]; Protocol Last Admin: 02/06/19 21:51 Dose: 2 units Insulin Aspart (Novolog Vial Sliding Scale -) 1 vial SQ TIDAC [facility]; Protocol Last Admin: 02/07/19 06:52 Dose: 8 units Insulin Detemir (Levemir Vial) 50 units SQ AM [facility] Last Admin: 02/07/19 06:47 Dose: 50 units Insulin Detemir (Levemir Vial) 20 units SQ HS [facility] Morphine Sulfate (Morphine Sulfate) 4 mg IVPUSH Q6H PRN PRN Reason: PAIN LEVEL 6-10 Last Admin: 02/02/19 06:55 Dose: 4 mg Sitagliptin Phosphate (Januvia -) 100 mg PO DAILY@0700 [facility] Last Admin: 02/07/19 06:47 Dose: 100 mg Valsartan (Diovan -) 320 mg PO DAILY [facility] Last Admin: 02/07/19 10:18 Dose: 320 mg - Objective Vital Signs: Vital Signs Temperature 98.1 F 02/07/19 06:56 Pulse Rate 60 02/07/19 06:56 Respiratory Rate 20 07/07/19 06:56 Blood Pressure 102/50 L 02/07/19 06:56 O2 Sat by Pulse Oximetry (%) 97 02/06/19 21:00 Constitutional: Yes: Well Nourished, No Distress, Calm Cardiovascular: Yes: Regular Rate and Rhythm Respiratory: Yes: Regular Gastrointestinal: Yes: Normal Bowel Sounds, Soft, Abdomen, Obese Genitourinary: Yes: WNL Musculoskeletal: Yes: WNL Extremities: Yes: WNL Edema: No Peripheral Pulses WNL: Yes Neurological: Yes: Alert, Oriented Psychiatric: Yes: Alert, Oriented Labs: CBC, BMP 02/04/19 07:17 02/04/19 07:17 INR, PTT INR 1.17 (0.83-1.09) H 02/01/19 14:40 Problem List - Problems (1) Acute epididymitis Assessment/Plan: -Seen by Urology+ ID -IV abx -Still complains of pain -Cultures: Microbiology 02/01/19 15:30 Urine - Urine Clean Catch Urine Culture - Preliminary Staphylococcus Coagulase Neg Strep Agalactiae Group B Code(s): N45.1 - EPIDIDYMITIS (2) Diabetes Assessment/Plan: -A1c at 8.2 -Seen by Endocrinology -Diabetic diet -BGM AC HS -Levemir -Novolog sliding scale -Januvia added Code(s): E11.9 - TYPE 2 DIABETES MELLITUS WITHOUT COMPLICATIONS Assessment/Plan see problem list D/C home in AM on po augmentin 875 mg po bid for 7 days and doxycycline 100 mg po bid for 7 days
[2019-02-07 14:52] VITALS: BP 111/50; PULSE 74; TEMP 98.8
== END 2019-02-07 15:04 | disposition home or self-care (01) | DRG 728 ==
LOC: JER 11:56 → J5S 17:09 → JER 23:47
PROVIDERS: ADMIT Family Medicine; ATTEND Family Medicine
DX: N45.1 Epididymitis (principal); I10 Essential (primary) hypertension; Z79.4 Long term (current) use of insulin; E78.5 Hyperlipidemia, unspecified; E66.01 Morbid (severe) obesity due to excess calories; E11.65 Type 2 diabetes mellitus with hyperglycemia; Z68.31 Body mass index [BMI] 31.0-31.9, adult
CPT/HCPCS: 36415; 76775-TC; 76856-TC; 76870-TC; 80053; 81003; 82962; 83036; 85025; 85027; 85610; 86850; 86900; 86901; 87077; 87086; 87186; 87491; 87591; 99282-25; J0131; J1644

== ENCOUNTER 2019-10-08 14:40 | Emergency (ER) | payer OTHER ==
[2019-10-08 15:00] VITALS: TEMP 97.8; BMI 34.0
--- NOTE | 2019-10-08 15:06 | PDOC ---
Rapid Medical Evaluation Time Seen by Provider: 10/08/19 14:58 Medical Evaluation: Allergies Allergy/AdvReac Type Severity Reaction Status Date / Time No Known Allergies Allergy Verified 10/08/19 14:56 Vital Signs Temp Pulse Resp BP Pulse Ox 97.8 F 92 H 17 106/64 96 10/08/19 14:56 10/08/19 14:56 10/08/19 14:56 10/08/19 14:56 10/08/19 14:56 10/08/19 15:00 Pt c/o: Left testicle pain and swelling, no fever or urinary complaints, hx of epididymitis Pt on brief exam: tenderness to left slightly edematous testicle, no discharge, or fluctulance Pt ordered for: urine and testicular u/s pt to proceed to the ED Discharge Disposition - Diagnosis Left testicular pain - Referrals - Patient Instructions - Post Discharge Activity
--- NOTE | 2019-10-08 15:39 | PDOC ---
History of Present Illness - General Chief Complaint: Pain Stated Complaint: PAIN Time Seen by Provider: 10/08/19 14:58 History Source: Patient Exam Limitations: No Limitations - History of Present Illness Initial Comments: 59-year-old male with past medical history of epididymitis, hypertension, hyperlipidemia, diabetes presented to the emergency department for right sided testicular pain for three days. He reported he believes the pain began for five minutes after he lifted in a heavy object. He reported he believes that the right side of his scrotum has been swollen, but it actually has improved from yesterday to today. He denied urinary retention, dysuria, hematuria, abdominal pain, back pain, fever, chills, lightheadedness, vomiting, diarrhea, constipation. He reported that he initially had A kidney stone surgery and during that time is urologist took a little bit of the prostate off without asking me". He reported a few weeks after that procedure he developed epididymitis, was admitted for eight days for IV antibiotics. ROS General: denied fever, chills, generalized weakness. HEENT: denied sore throat, rhinorrhea, ear pain. Cardiovascular: denied chest pain, palpitations, syncope, diaphoresis. Respiratory: denied shortness of breath, cough, sputum production, hemoptysis. Gastrointestinal: denied abdominal pain, nausea, vomiting, diarrhea, constipation, blood in stool. Genitourinary: denied dysuria, increased urinary frequency, hematuria, urinary incontinence, flank pain. Back: denied back pain. Musculoskeletal: denied joint pain, muscle pain, joint swelling. Neurological: denied headache, dizziness, numbness, tingling, weakness. Integumentary: denied rash, laceration, abrasion. Hematologic/Lymphatic: denied bruising or bleeding. PE Constitutional: Well-nourished, Well-developed, appearing stated age. HEENT: head is normocephalic, atraumatic. EOMI. PERRLA. no posterior pharyngeal erythema. no tonsillar swelling or exudates bilaterally. uvula midline. no peritonsillar swelling. no jaw tenderness or misalignment. Neck: supple. Full ROM. Cardiovascular: regular heart rhythm. Normal S1 and S2. no murmurs. no pericardial friction rub. Respiratory: clear to auscultation bilaterally. no crackles, rhonchi or wheezing. no stridor. Gastrointestinal: soft, flat, nontender. normal bowel sounds. no rebound, guarding, or masses. Extremities: peripheral pulses intact and equal. no lower extremity edema noted. Neurological: CN 2-12 grossly intact. moves all four extremities. Psych: awake, alert, oriented x3. follows commands. answers questions appropriately. Genital: bilateral testicles in vertical lie without skin changes. tenderness to right testicle. no testicular swelling. no pitting edema. no necrosis. no crepitus. Past History - Past Medical History Allergies/Adverse Reactions: Allergies Allergy/AdvReac Type Severity Reaction Status Date / Time No Known Allergies Allergy Verified 10/08/19 14:56 Home Medications: Ambulatory Orders Atorvastatin Ca [Lipitor] 40 mg PO HS 02/01/19 Finasteride [Proscar -] 5 mg PO DAILY 02/01/19 Icosapent Ethyl [Vascepa] 1 gm PO DAILY 02/01/19 Insulin Glargine,Hum.rec.anlog [Basaglar Kwikpen U-100] 60 unit SQ DAILY 02/01/19 Insulin Lispro [Humalog] 15 unit SQ AC 02/01/19 Olmesartan Medoxomil [Benicar -] 40 mg PO DAILY 02/01/19 Amox-Tr/K Cl [Augmentin - 875Mg Tablet] 1 tab PO BID #14 tablet 02/07/19 Doxycycline Hyclate [Vibramycin -] 100 mg PO BID@1000,1800 #14 capsule 02/07/19 Sitagliptin Phosphate [Januvia -] 100 mg PO DAILY@0700 #30 tablet 02/07/19 levoFLOXacin [Levaquin -] 500 mg PO DAILY #9 tablet 10/08/19 - Surgical History Orthopedic Surgery: Yes (R. Rotator cuff) - Psycho Social/Smoking Cessation Hx Smoking Status: No Smoking History: Never smoked Have you smoked in the past 12 months: No Number of Cigarettes Smoked Daily: 0 Information on smoking cessation initiated: No Hx Alcohol Use: No Drug/Substance Use Hx: No Substance Use Type: None Hx Substance Use Treatment: No *Physical Exam - Vital Signs Last Vital Signs Temp Pulse Resp BP Pulse Ox 97.8 F 92 H 17 106/64 96 10/08/19 14:56 10/08/19 14:56 10/08/19 14:56 10/08/19 14:56 10/08/19 14:56 Medical Decision Making - Medical Decision Making 59 year old male with above PMH presented to ED for right sided testicular pain x3 days. Initial Vital Signs Temp Pulse Resp BP Pulse Ox 97.8 F 92 H 17 106/64 96 10/08/19 14:56 10/08/19 14:56 10/08/19 14:56 10/08/19 14:56 10/08/19 14:56 Afebrile. No tachycardia. No tachypnea. No hypotension. No hypoxia on room air. Labs ordered: UA, GC/Chlamydia Imaging ordered: Scrotal US Medications ordered: none 10/08/19 17:23 Laboratory Last Values Urine Color Yellow 10/08/19 15:15 Urine Appearance Clear 10/08/19 15:15 Urine pH 5.0 (5.0-8.0) 10/08/19 15:15 Ur Specific [place] 1.033 (1.010-1.035) 10/08/19 15:15 Urine Protein Negative (NEGATIVE) 10/08/19 15:15 Urine Glucose (UA) 1+ (NEGATIVE) H 10/08/19 15:15 Urine Ketones Trace (NEGATIVE) H 10/08/19 15:15 Urine Blood Trace (NEGATIVE) 10/08/19 15:15 Urine Nitrite Negative (NEGATIVE) 10/08/19 15:15 Urine Bilirubin Negative (NEGATIVE) 10/08/19 15:15 Urine Urobilinogen 1.0 mg/dL (0.2-1.0) 10/08/19 15:15 Ur Leukocyte Esterase 1+ (NEGATIVE) H 10/08/19 15:15 Urine WBC (Auto) 1 /hpf (0-5) 10/08/19 15:15 Urine RBC (Auto) 1 /hpf (0-4) 10/08/19 15:15 Urine Casts (Auto) 1 /lpf (0-8) 10/08/19 15:15 U Pathogenic Cast Auto None seen /lpf (NEGATIVE) 10/08/19 15:15 U Epithel Cells (Auto) 9.1 /HPF (0-5/HPF) 10/08/19 15:15 Urine Bacteria (Auto) 51.6 /hpf (NEGATIVE) 10/08/19 15:15 US report: Clayton Tovar Name: [facility] Phys: Emma Christensen NP : 1960 Age: 59 Sex: M [facility] Acct: [id number] Loc: [facility] Jung7 [facility] Exam Date: 10/08/19 Status: DAKSHA [id number] Unit Number: [id number] EXAM#: TYPE/EXAM: RESULT: [id number] US/SCROTUM AND CONTENTS US Scrotal ultrasound Clinical information: right testicle swelling The exam was performed utilizing grayscale and Doppler sonography. Small to moderate right-sided which may be mildly increased in comparison to a prior ultrasound exam of 02/01/2019. The right epididymis demonstrates increased vascularity on Doppler imaging suggestive of acute epididymitis. Correlate clinically. The left epididymis appears unremarkable on the current study. At the time of the prior exam increased vascularity was noted suggestive of epididymitis. Bilateral varicoceles are again seen. No obvious focal testicular pathology is seen. There is no Doppler evidence of testicular torsion (reported sensitivity 85%). Correlate clinically. Impression: Small to moderate right hydrocele. Probable acute right epididymitis. Bilateral varicoceles. Reported By: Hollis Wing MD 10/08/19 [id number] Medications ordered: Levaquin 500 mg PO once Pt informed of results and provided with copies of labs/reports. Pt advised to F/U with urology. Given additional referrals. Will prescribe Levaquin 500 mg PO daily x9 more days for a total of x10 days. Pt given return precautions. Pt discharged. Discharge - Discharge Information Problems reviewed: Yes Clinical Impression/Diagnosis: Epididymitis Condition: Stable Disposition: HOME - Admission No - Additional Discharge Information Prescriptions: levoFLOXacin [Levaquin -] 500 mg PO DAILY #9 tablet - Follow up/Referral Referrals: Soledad Littlejohn MD [Primary Care Provider] - Elvis Hardy MD [Staff Physician] - Ren Johnson MD [Staff Physician] - - Patient Discharge Instructions Patient Printed Discharge Instructions: DI for Epididymitis Additional Instructions: Follow up with your primary care doctor within 3 days regarding your ER visit. Your care is not complete until you follow up. Bring all paperwork given to you today to your appointment. Bring all medication bottles you are taking to your appointment. Follow up with your Urologist within 3 days regarding your ER visit. Your care is not complete until you follow up. Bring all paperwork given to you today to your appointment. Bring all medication bottles you are taking to your appointment. I have given you referrals should you need them. I have prescribed you an antibiotic to your pharmacy. Take as advised on label. Do not stop early even if you are feeling better. Take Tylenol over the counter for pain, take as advised on label. Do not take more than 4000 mg every 24 hours. Drink lots of fluids. Return to the Emergency Department for increasing pain, inability to urinate, chest pain, shortness of breath, fever, vomiting, abdominal distension, increasing testicular swelling, or any other new, worsening or concerning symptoms. - Post Discharge Activity Work/Back to School Note: Back to Work
[2019-10-08 15:40] LABS: EPI CELLS 9.1 /HPF (0-5/HPF); HYALINE CASTS 1 /lpf (0-8); URINE APPEARANCE CLEAR; URINE BACTERIA 51.6 /hpf (NEGATIVE); URINE BILIRUBIN NEGATIVE (NEGATIVE); URINE COLOR YELLOW; URINE GLUCOSE (UA) 1+ (NEGATIVE); URINE KETONE TRACE (NEGATIVE); URINE LEUK ESTERASE 1+ (NEGATIVE); URINE NITRITE NEGATIVE (NEGATIVE); URINE PROTEIN NEGATIVE (NEGATIVE); URINE RBC 1 /hpf (0-4); URINE WBC 1 /hpf (0-5)
--- NOTE | 2019-10-08 16:35 | PDOC ---
Documentation entered by Ruth Lynch SCRIBE, acting as scribe for Andra Bolden MD. Andra Bolden MD: This documentation has been prepared by the Cris jama Nirvannie, SCRIBE, under my direction and personally reviewed by me in its entirety. I confirm that the documentation accurately reflects all work, treatment, procedures, and medical decision making performed by me. Attending Attestation - Resident Resident Name: Nathalia Agarwal - ED Attending Attestation I have performed the following: I have examined & evaluated the patient, The case was reviewed & discussed with the resident, I agree w/resident's findings & plan, Exceptions are as noted - HPI HPI: 10/08/19 16:59 The patient is a 59 year old male, with a significant past medical history of epididymitis (after a kidney stone surgery which the urologist took a little bit of the prostate off), hypertension, hyperlipidemia, diabetes , who presents to the emergency department with 3 days of right-sided testicular pain. Patient notes his pain onset approximately 5 min after lifting a heavy object with associated swelling (improving the past 2 days). Allergies: NKA Primary Care Physician: Dr. Littlejohn - Physicial Exam PE: GENERAL: Awake, alert, and fully oriented, in no acute distress HEAD: No signs of trauma EYES: PERRLA, EOMI, sclera anicteric, conjunctiva clear ENT: Auricles normal inspection, hearing grossly normal, nares patent, oropharynx clear without exudates. Moist mucosa NECK: Normal ROM, supple, no lymphadenopathy, JVD, or masses LUNGS: Breath sounds equal, clear to auscultation bilaterally. No wheezes, and no crackles HEART: Regular rate and rhythm, normal S1 and S2, no murmurs, rubs or gallops ABDOMEN: Soft, nontender, normoactive bowel sounds. No guarding, no rebound. No masses EXTREMITIES: Normal range of motion, no edema. No clubbing or cyanosis. No cords, erythema, or tenderness NEUROLOGICAL: Cranial nerves II through XII grossly intact. Normal speech, normal gait. Motor and sensation intact SKIN: Warm, dry, normal turgor, no rashes or lesions noted. : +R testicular tenderness, mild edema. No induration, no fluctuance, no skin lesions. - Medical Decision Making Symptoms suggestive of epididymitis, confirmed on ultrasound. Will treat with levaquin as outpatient. Stable for DC home.
[2019-10-08 19:18] VITALS: BP 109/65; PULSE 88
== END 2019-10-08 18:30 | disposition home or self-care (01) ==
LOC: JER 14:40
DX: N45.1 Epididymitis (principal); I10 Essential (primary) hypertension; E78.5 Hyperlipidemia, unspecified; E11.9 Type 2 diabetes mellitus without complications; Z79.4 Long term (current) use of insulin
CPT/HCPCS: 76870-TC; 81003; 87086; 99284-25

== ENCOUNTER 2021-01-21 16:47 | Emergency (ER) | payer OTHER ==
[2021-01-21 16:59] VITALS: BP 120/74; PULSE 72; TEMP 97.9; BMI 34.0
[2021-01-21] MEDS ORDERED: ACETAMINOPHEN 325 MG TABLET (FP) PO ONE (17:28)
[2021-01-21] MEDS ORDERED: ACETAMINOPHEN 325 MG TABLET (FP) ONE (17:45)
== END 2021-01-21 19:06 | disposition home or self-care (01) ==
LOC: JER 16:47
DX: J34.89 Other specified disorders of nose and nasal sinuses (principal); M79.641 Pain in right hand; M25.531 Pain in right wrist
CPT/HCPCS: 70450-TC; 70486-TC; 73110-TC-RT-FY; 73130-TC-RT-FY; 99285-25

== ENCOUNTER 2021-03-04 16:49 | Inpatient (IN) | payer OTHER ==
[2021-03-04] MEDS ORDERED: ACETAMINOPHEN 1000 MG/100 ML VIAL (NON FORMULARY) IVPB ONE (18:03)
[2021-03-04] MEDS ORDERED: SODIUM CHLORIDE 0.9% 500 ML INFUS.BAG IV ONE (18:03)
[2021-03-04] MEDS ORDERED: ACETAMINOPHEN INJECTION 100 ML IVPB ONE (18:20)
[2021-03-04 19:04] LABS: BASO % 0.4 % (0-2.0); HEMATOCRIT 33.3 % (35.4-49); HEMOGLOBIN 11.4 GM/dL (11.7-16.9); LYMPH % 5.8 % (8-40); MCH 28.9 pg (25.7-33.7); MCHC 34.1 g/dl (32.0-35.9); MEAN CELL VOLUME 84.8 fl (80-96); MONO % 5.8 % (3.8-10.2); PLATELET COUNT 186 10^3/uL (134-434); RBC 3.93 M/mm3 (4.00-5.60); RDW 13.7 % (11.9-15.9); WHITE BLOOD COUNT 17.6 K/mm3 (4.0-10.0)
[2021-03-04 19:24] LABS: ALBUMIN 3.7 g/dl (3.4-5.0); BLOOD UREA NITROGEN 20.9 mg/dL (7-18); CALCIUM 8.7 mg/dL (8.5-10.1)
[2021-03-04 19:27] LABS: CREATININE 1.6 mg/dL (0.55-1.3)
[2021-03-04 19:29] LABS: BILIRUBIN,TOTAL 0.4 mg/dL (0.2-1); TOT PROT 7.4 g/dl (6.4-8.2)
[2021-03-04 19:53] LABS: EPI CELLS 10 /uL (0-25.1); HYALINE CASTS 5 /uL (0-3.1); URINE APPEARANCE TURBID; URINE BACTERIA 529 /uL (0-1359); URINE BILIRUBIN NEGATIVE (NEGATIVE); URINE COLOR DK YELLOW; URINE GLUCOSE (UA) TRACE (NEGATIVE); URINE KETONE 1+ (NEGATIVE); URINE LEUK ESTERASE 2+ (NEGATIVE); URINE NITRITE NEGATIVE (NEGATIVE); URINE PROTEIN 3+ (NEGATIVE); URINE RBC 19 /uL (0-23.9); URINE WBC 1305 /uL (0-25.8)
[2021-03-04] MEDS ORDERED: SODIUM CHLORIDE 0.9% 1000 ML INFUS.BAG IV ONE (20:50)
[2021-03-04] MEDS ORDERED: CEFTRIAXONE 1,000 MG in DEXTROSE 5%-WATER - 50 ML IVPB ONE (20:51)
[2021-03-04] MEDS ORDERED: CEFTRIAXONE 1 GM/50 ML BAG ONE (21:07)
[2021-03-04] MEDS ORDERED: IBUPROFEN 400 MG TABLET (FP) PO ONE ×2 (23:03→23:49)
[2021-03-05] MEDS ORDERED: ACETAMINOPHEN 325 MG TABLET (FP) PO PRN (01:00)
[2021-03-05] MEDS: INSULIN SLIDING SCALE (NOVOLOG) 1 VIAL SQ SCH ×4 (06:02→22:04)
[2021-03-05 08:19] LABS: BASO % 0.1 % (0-2.0); EOS % 0.1 % (0-4.5); HEMATOCRIT 33.4 % (35.4-49); HEMOGLOBIN 11.4 GM/dL (11.7-16.9); LYMPH % 9.3 % (8-40); MCH 29.8 pg (25.7-33.7); MCHC 34.1 g/dl (32.0-35.9); MEAN CELL VOLUME 87.4 fl (80-96); MEAN PLT VOLUME 8.9 fl (7.5-11.1); MONO % 5.3 % (3.8-10.2); NEUT % 85.2 % (42.8-82.8); PLATELET COUNT 134 10^3/uL (134-434); RBC 3.82 M/mm3 (4.00-5.60); RDW 13.7 % (11.9-15.9); WHITE BLOOD COUNT 10.3 K/mm3 (4.0-10.0)
[2021-03-05 08:38] LABS: ALBUMIN 3.2 g/dl (3.4-5.0); BLOOD UREA NITROGEN 23.4 mg/dL (7-18); CALCIUM 8.2 mg/dL (8.5-10.1)
[2021-03-05 08:41] LABS: CREATININE 1.2 mg/dL (0.55-1.3)
[2021-03-05 08:43] LABS: BILIRUBIN,TOTAL 0.4 mg/dL (0.2-1); TOT PROT 6.7 g/dl (6.4-8.2)
[2021-03-05] MEDS ORDERED: DEXTROSE 5%-WATER - 50 ML IVPB ONE ×2 (09:15→18:41)
[2021-03-05] MEDS ORDERED: CEFTRIAXONE 1 GM in DEXTROSE 5%-WATER - 50 ML IVPB SCH (10:00)
[2021-03-05] MEDS ORDERED: LOSARTAN POTASSIUM 50 MG TABLET PO SCH (10:00)
[2021-03-05] MEDS ORDERED: CEFTRIAXONE 2 GM in DEXTROSE 5%-WATER - 2 GM/50 ML IVPB IVPB SCH (10:00)
[2021-03-05] MEDS: ASPIRIN 81 MG CHEWABLE TABLETS PO SCH (10:25)
[2021-03-05] MEDS ORDERED: PIPERACILLIN/TAZOB 3.375 GM 3.375 GM in DEXTROSE 5%-WATER - 50 ML IVPB ONE (17:50)
[2021-03-05] MEDS ORDERED: SODIUM CHLORIDE 500 ML IV STA (17:50)
[2021-03-05] MEDS ORDERED: VANCOMYCIN 1 GM in D5W (PRE-DOCKED) 1,000 MG/250 ML IVPB ONE (17:50)
[2021-03-05] MEDS ORDERED: SODIUM CHLORIDE 1,000 ML IV SCH (18:00)
[2021-03-05] MEDS ORDERED: PIPERACILLIN/TAZOBACTAM 3.375 GM VIAL IVPB ONE (18:41)
[2021-03-05] MEDS ORDERED: SODIUM CHLORIDE 250 ML IV ONE (19:00)
[2021-03-05] MEDS: SODIUM CHLORIDE 1,000 ML IV SCH (20:00)
[2021-03-05 20:08] LABS: HEMATOCRIT 27.8 % (35.4-49); HEMOGLOBIN 9.6 GM/dL (11.7-16.9); MCH 29.7 pg (25.7-33.7); MCHC 34.6 g/dl (32.0-35.9); MEAN CELL VOLUME 85.9 fl (80-96); MEAN PLT VOLUME 8.8 fl (7.5-11.1); PLATELET COUNT 140 10^3/uL (134-434); RBC 3.24 M/mm3 (4.00-5.60); RDW 13.5 % (11.9-15.9); WHITE BLOOD COUNT 9.5 K/mm3 (4.0-10.0)
[2021-03-05 20:25] LABS: ALBUMIN 2.7 g/dl (3.4-5.0); BLOOD UREA NITROGEN 24.7 mg/dL (7-18); CALCIUM 7.7 mg/dL (8.5-10.1)
[2021-03-05 20:29] LABS: CREATININE 1.3 mg/dL (0.55-1.3)
[2021-03-05 20:30] LABS: BILIRUBIN,TOTAL 0.2 mg/dL (0.2-1); TOT PROT 5.9 g/dl (6.4-8.2)
[2021-03-05] MEDS ORDERED: SODIUM CHLORIDE 1,000 ML IV STA ×2 (20:46→23:30)
[2021-03-05] MEDS ORDERED: ACETAMINOPHEN 1000 MG/100 ML VIAL (NON FORMULARY) IVPB ONE (20:48)
[2021-03-05] MEDS ORDERED: MEROPENEM 1 GM in DEXTROSE 5%-WATER 100 ML IVPB ONE (21:23)
[2021-03-05] MEDS ORDERED: DEXTROSE 5%-WATER 100 ML IVPB ONE (21:53)
[2021-03-05] MEDS ORDERED: MEROPENEM 1 GM VIAL (RESTRICTED TO ID) IVPB ONE (21:53)
[2021-03-05] MEDS ORDERED: ATORVASTATIN CA 40 MG TABLET (FP) PO SCH (22:00)
[2021-03-05] MEDS ORDERED: PT OWN MED DRAWER 7, Y5N ONE (22:03)
[2021-03-05] MEDS ORDERED: LACTATED RINGERS SOLUTION 1000 ML INFUS.BAG IV ONE (22:56)
[2021-03-06] MEDS ORDERED: DEXTROSE 5%-WATER - 50 ML IVPB ONE ×3 (01:11→17:13)
[2021-03-06] MEDS ORDERED: PIPERACILLIN/TAZOBACTAM 3.375 GM VIAL IVPB ONE ×3 (01:11→17:12)
[2021-03-06] MEDS ORDERED: VASOPRESSIN 20 UNITS/ML VIAL IV ONE (01:37)
[2021-03-06] MEDS: VASOPRESSIN 40 UNITS in SODIUM CHLORIDE 98 ML IVPB SCH (01:41)
[2021-03-06] MEDS: PIPERACILLIN/TAZOB 3.375 GM 3.375 GM in DEXTROSE 5%-WATER - 50 ML IVPB SCH ×3 (01:42→17:23)
[2021-03-06] MEDS: METOCLOPRAMIDE HCL INJECTION 10 MG/2 ML VIAL IVPUSH PRN (02:55)
[2021-03-06] MEDS: INSULIN SLIDING SCALE (NOVOLOG) 1 VIAL SQ SCH ×4 (06:50→21:22)
[2021-03-06 07:12] LABS: BASO % 0.2 % (0-2.0); HEMOGLOBIN 9.7 GM/dL (11.7-16.9); LYMPH % 7.6 % (8-40); MCH 30.1 pg (25.7-33.7); MCHC 34.5 g/dl (32.0-35.9); MEAN CELL VOLUME 87.2 fl (80-96); MEAN PLT VOLUME 9.4 fl (7.5-11.1); MONO % 5.9 % (3.8-10.2); NEUT % 86.3 % (42.8-82.8); PLATELET COUNT 126 10^3/uL (134-434); RBC 3.21 M/mm3 (4.00-5.60); RDW 13.8 % (11.9-15.9); WHITE BLOOD COUNT 7.2 K/mm3 (4.0-10.0)
[2021-03-06 07:17] LABS: INR 1.35 (0.83-1.09); PROTHROMBIN TIME (PATIENT) 16.2 SEC (9.7-13.0)
[2021-03-06] MEDS ORDERED: PT OWN MED DRAWER 7, Y5N ONE (07:17)
[2021-03-06 07:20] LABS: ACTIVATED PTT 23.2 SECONDS (25.2-36.5)
[2021-03-06 07:31] LABS: ALBUMIN 2.6 g/dl (3.4-5.0); BLOOD UREA NITROGEN 22.4 mg/dL (7-18); MAGNESIUM 1.3 mg/dL (1.8-2.4)
[2021-03-06 07:34] LABS: CREATININE 1.2 mg/dL (0.55-1.3); PHOSPHOROUS 2.1 mg/dL (2.5-4.9)
[2021-03-06 07:36] LABS: BILIRUBIN,TOTAL 0.4 mg/dL (0.2-1); TOT PROT 5.5 g/dl (6.4-8.2)
[2021-03-06] MEDS: SODIUM CHLORIDE 1,000 ML IV SCH ×3 (08:47→16:00)
[2021-03-06] MEDS: ASPIRIN 81 MG CHEWABLE TABLETS PO SCH (09:12)
[2021-03-06] MEDS ORDERED: MAGNESIUM OXIDE 400 MG TABLET (FP) PO ONE (09:15)
[2021-03-06] MEDS ORDERED: SODIUM CHLORIDE 500 ML IV STA ×2 (10:27→10:29)
[2021-03-06] MEDS: ENOXAPARIN NA (PORCINE) 40 MG/0.4 ML DISP.SYRIN SQ SCH (13:39)
[2021-03-06] MEDS: NAPH,MB-DB/K PH,MBDB POWDER PACKET PO SCH ×2 (13:40→21:22)
[2021-03-06] MEDS: MUPIROCIN 2% TOPICAL OINTMENT FOR DECOLONIZATION NS SCH ×2 (15:17→23:30)
[2021-03-06] MEDS: LACTOBACILLUS ACIDOPHILUS 1 TABLET PO SCH (15:27)
[2021-03-06] MEDS: ACETAMINOPHEN 1000 MG/100 ML VIAL (NON FORMULARY) IVPB PRN (18:47)
[2021-03-06] MEDS ORDERED: SODIUM CHLORIDE 1,000 ML IV SCH (19:08)
[2021-03-06] MEDS: CHLORHEXIDINE GLUCONATE 4% CLEANSER FOR DECOLONIZATION TP SCH (21:23)
[2021-03-06] MEDS ORDERED: ATORVASTATIN CA 40 MG TABLET (FP) PO SCH (22:00)
[2021-03-07] MEDS: ACETAMINOPHEN 1000 MG/100 ML VIAL (NON FORMULARY) IVPB PRN ×2 (01:58→10:16)
[2021-03-07] MEDS: METOCLOPRAMIDE HCL INJECTION 10 MG/2 ML VIAL IVPUSH PRN (02:03)
[2021-03-07] MEDS: VASOPRESSIN 40 UNITS in SODIUM CHLORIDE 98 ML IVPB SCH (03:03)
[2021-03-07] MEDS ORDERED: DEXTROSE 5%-WATER - 50 ML IVPB ONE ×3 (03:04→16:56)
[2021-03-07] MEDS ORDERED: PIPERACILLIN/TAZOBACTAM 3.375 GM VIAL IVPB ONE ×3 (03:04→16:56)
[2021-03-07] MEDS: PIPERACILLIN/TAZOB 3.375 GM 3.375 GM in DEXTROSE 5%-WATER - 50 ML IVPB SCH ×3 (03:07→18:05)
[2021-03-07] MEDS: NAPH,MB-DB/K PH,MBDB POWDER PACKET PO SCH ×3 (05:24→21:44)
[2021-03-07] MEDS: INSULIN SLIDING SCALE (NOVOLOG) 1 VIAL SQ SCH ×4 (06:30→22:39)
[2021-03-07 07:29] LABS: BASO % 0.2 % (0-2.0); HEMATOCRIT 28.1 % (35.4-49); HEMOGLOBIN 9.5 GM/dL (11.7-16.9); LYMPH % 13.2 % (8-40); MCH 29.1 pg (25.7-33.7); MCHC 33.7 g/dl (32.0-35.9); MEAN CELL VOLUME 86.6 fl (80-96); MEAN PLT VOLUME 9.2 fl (7.5-11.1); NEUT % 76.6 % (42.8-82.8); PLATELET COUNT 168 10^3/uL (134-434); RBC 3.25 M/mm3 (4.00-5.60); RDW 14.1 % (11.9-15.9); WHITE BLOOD COUNT 8.4 K/mm3 (4.0-10.0)
[2021-03-07 07:58] LABS: CALCIUM 7.4 mg/dL (8.5-10.1)
[2021-03-07 07:59] LABS: ALBUMIN 2.8 g/dl (3.4-5.0); BLOOD UREA NITROGEN 34.1 mg/dL (7-18); MAGNESIUM 1.9 mg/dL (1.8-2.4)
[2021-03-07 08:02] LABS: CREATININE 1.1 mg/dL (0.55-1.3); PHOSPHOROUS 2.6 mg/dL (2.5-4.9)
[2021-03-07 08:03] LABS: BILIRUBIN,TOTAL 0.3 mg/dL (0.2-1)
[2021-03-07] MEDS: ALPRAZolam 1 MG TABLET PO PRN ×2 (08:16→22:41)
[2021-03-07] MEDS: ASPIRIN 81 MG CHEWABLE TABLETS PO SCH (09:11)
[2021-03-07] MEDS: ENOXAPARIN NA (PORCINE) 40 MG/0.4 ML DISP.SYRIN SQ SCH (09:11)
[2021-03-07] MEDS: LACTOBACILLUS ACIDOPHILUS 1 TABLET PO SCH (09:12)
[2021-03-07] MEDS: MUPIROCIN 2% TOPICAL OINTMENT FOR DECOLONIZATION NS SCH ×2 (09:12→21:45)
[2021-03-07 09:20] LABS: N-TERMINAL BNP 2536.9 pg/ml (5-125)
[2021-03-07] MEDS ORDERED: PT OWN MED DRAWER 7, Y5N ONE (10:02)
[2021-03-07] MEDS ORDERED: FUROSEMIDE 40 MG/4 ML INJECTABLE VIAL IVPUSH SCH ×2 (11:00)
[2021-03-07] MEDS ORDERED: SODIUM CHLORIDE 1,000 ML IV SCH (13:08)
[2021-03-07] MEDS: SODIUM CHLORIDE 1,000 ML IV SCH (13:30)
[2021-03-07] MEDS ORDERED: IBUPROFEN 200 MG TABLET PO ONE (18:51)
[2021-03-07] MEDS ORDERED: VANCOMYCIN 1 GM in D5W (PRE-DOCKED) 1,000 MG/250 ML IVPB ONE (18:52)
[2021-03-07] MEDS ORDERED: IBUPROFEN 400 MG TABLET (FP) PO ONE (18:58)
[2021-03-07] MEDS ORDERED: IBUPROFEN 800 MG/8 ML IJ IVPB ONE (19:14)
[2021-03-07] MEDS ORDERED: SODIUM CHLORIDE 500 ML IV STA (21:06)
[2021-03-07] MEDS: CHLORHEXIDINE GLUCONATE 4% CLEANSER FOR DECOLONIZATION TP SCH (21:45)
[2021-03-08] MEDS ORDERED: PIPERACILLIN/TAZOBACTAM 3.375 GM VIAL IVPB ONE ×3 (00:28→17:36)
[2021-03-08] MEDS ORDERED: DEXTROSE 5%-WATER - 50 ML IVPB ONE ×3 (00:28→17:36)
[2021-03-08] MEDS: PIPERACILLIN/TAZOB 3.375 GM 3.375 GM in DEXTROSE 5%-WATER - 50 ML IVPB SCH ×3 (02:35→17:45)
[2021-03-08] MEDS: NAPH,MB-DB/K PH,MBDB POWDER PACKET PO SCH ×3 (05:49→21:17)
[2021-03-08] MEDS: INSULIN SLIDING SCALE (NOVOLOG) 1 VIAL SQ SCH ×4 (06:26→21:18)
[2021-03-08 07:10] LABS: BASO % 0.1 % (0-2.0); EOS % 0.2 % (0-4.5); HEMATOCRIT 30.7 % (35.4-49); HEMOGLOBIN 10.3 GM/dL (11.7-16.9); LYMPH % 16.5 % (8-40); MCH 28.9 pg (25.7-33.7); MCHC 33.6 g/dl (32.0-35.9); MEAN CELL VOLUME 86.1 fl (80-96); MEAN PLT VOLUME 8.7 fl (7.5-11.1); MONO % 10.7 % (3.8-10.2); NEUT % 72.5 % (42.8-82.8); PLATELET COUNT 206 10^3/uL (134-434); RBC 3.56 M/mm3 (4.00-5.60); RDW 14.5 % (11.9-15.9); WHITE BLOOD COUNT 9.9 K/mm3 (4.0-10.0)
[2021-03-08 07:32] LABS: ALBUMIN 2.9 g/dl (3.4-5.0); CALCIUM 7.7 mg/dL (8.5-10.1)
[2021-03-08 07:33] LABS: BLOOD UREA NITROGEN 20.8 mg/dL (7-18)
[2021-03-08 07:35] LABS: CREATININE 0.9 mg/dL (0.55-1.3)
[2021-03-08 07:36] LABS: PHOSPHOROUS 2.2 mg/dL (2.5-4.9)
[2021-03-08 07:38] LABS: BILIRUBIN,TOTAL 0.4 mg/dL (0.2-1); TOT PROT 6.5 g/dl (6.4-8.2)
[2021-03-08] MEDS ORDERED: IBUPROFEN 600 MG TABLET (FP) PO PRN ×2 (08:02→14:45)
[2021-03-08] MEDS ORDERED: KETOROLAC TROMETHAMINE 15 MG/ML VIAL IVPUSH ONE (08:14)
[2021-03-08] MEDS: LACTOBACILLUS ACIDOPHILUS 1 TABLET PO SCH (09:37)
[2021-03-08] MEDS: ASPIRIN 81 MG CHEWABLE TABLETS PO SCH (09:37)
[2021-03-08] MEDS: ENOXAPARIN NA (PORCINE) 40 MG/0.4 ML DISP.SYRIN SQ SCH (09:37)
[2021-03-08] MEDS: MUPIROCIN 2% TOPICAL OINTMENT FOR DECOLONIZATION NS SCH (09:38)
[2021-03-08] MEDS ORDERED: KETOROLAC TROMETHAMINE 15 MG/ML VIAL IVPUSH PRN ×2 (11:41→14:45)
[2021-03-08] MEDS: KETOROLAC TROMETHAMINE 15 MG/ML VIAL IVPUSH ONE ×2 (12:05→12:45)
[2021-03-08] MEDS: SODIUM CHLORIDE 1,000 ML IV SCH (12:17)
[2021-03-08] MEDS ORDERED: METOCLOPRAMIDE HCL INJECTION 10 MG/2 ML VIAL IVPUSH PRN (14:45)
[2021-03-08] MEDS ORDERED: SODIUM CHLORIDE 1,000 ML IV SCH (14:45)
[2021-03-08] MEDS: ALPRAZolam 0.25 MG TABLET PO PRN (21:17)
[2021-03-08] MEDS ORDERED: CHLORHEXIDINE GLUCONATE 4% CLEANSER FOR DECOLONIZATION TP SCH (22:00)
[2021-03-08] MEDS ORDERED: MUPIROCIN 2% TOPICAL OINTMENT FOR DECOLONIZATION NS SCH (22:00)
[2021-03-09] MEDS ORDERED: PIPERACILLIN/TAZOBACTAM 3.375 GM VIAL IVPB ONE ×2 (01:05→10:11)
[2021-03-09] MEDS ORDERED: DEXTROSE 5%-WATER - 50 ML IVPB ONE ×2 (01:05→10:11)
[2021-03-09] MEDS: PIPERACILLIN/TAZOB 3.375 GM 3.375 GM in DEXTROSE 5%-WATER - 50 ML IVPB SCH ×2 (01:48→10:29)
[2021-03-09] MEDS: NAPH,MB-DB/K PH,MBDB POWDER PACKET PO SCH ×3 (06:36→21:18)
[2021-03-09] MEDS: INSULIN SLIDING SCALE (NOVOLOG) 1 VIAL SQ SCH ×4 (06:37→21:21)
[2021-03-09] MEDS ORDERED: INSULIN (NOVOLOG) ASPART 100 UNITS/ML 10ML VIAL ONE ×4 (07:00→20:55)
[2021-03-09] MEDS ORDERED: FERRIC CARBOXYMALTOSE 750 MG in SODIUM CHLORIDE 250 ML IVPB ONE (08:14)
[2021-03-09 09:54] LABS: BASO % 0.4 % (0-2.0); EOS % 0.4 % (0-4.5); HEMATOCRIT 27.9 % (35.4-49); HEMOGLOBIN 9.5 GM/dL (11.7-16.9); LYMPH % 23.8 % (8-40); MCH 29.3 pg (25.7-33.7); MCHC 34.2 g/dl (32.0-35.9); MEAN CELL VOLUME 85.7 fl (80-96); MONO % 9.5 % (3.8-10.2); NEUT % 65.9 % (42.8-82.8); PLATELET COUNT 244 10^3/uL (134-434); RBC 3.26 M/mm3 (4.00-5.60); RDW 14.1 % (11.9-15.9); WHITE BLOOD COUNT 7.1 K/mm3 (4.0-10.0)
[2021-03-09 10:11] LABS: BLOOD UREA NITROGEN 16.2 mg/dL (7-18); CALCIUM 7.7 mg/dL (8.5-10.1)
[2021-03-09 10:12] LABS: ALBUMIN 2.6 g/dl (3.4-5.0); MAGNESIUM 2.2 mg/dL (1.8-2.4)
[2021-03-09 10:15] LABS: CREATININE 0.7 mg/dL (0.55-1.3); PHOSPHOROUS 2.2 mg/dL (2.5-4.9)
[2021-03-09 10:16] LABS: BILIRUBIN,TOTAL 0.8 mg/dL (0.2-1); TOT PROT 6.2 g/dl (6.4-8.2)
[2021-03-09] MEDS: ENOXAPARIN NA (PORCINE) 40 MG/0.4 ML DISP.SYRIN SQ SCH (10:27)
[2021-03-09] MEDS: LACTOBACILLUS ACIDOPHILUS 1 TABLET PO SCH (10:29)
[2021-03-09] MEDS: ASPIRIN 81 MG CHEWABLE TABLETS PO SCH (10:29)
[2021-03-09] MEDS: FUROSEMIDE 40 MG/4 ML INJECTABLE VIAL IVPUSH SCH (10:29)
[2021-03-09] MEDS ORDERED: DEXTROSE 5%-WATER 100 ML IVPB ONE (12:29)
[2021-03-09] MEDS: CEFTRIAXONE 2 GM in DEXTROSE 5%-WATER 2 GM/100 ML BAG IVPB SCH (12:35)
[2021-03-09] MEDS ORDERED: ALBUTEROL SO4 0.5 % INH SOLN 2.5 MG/0.5 ML VIAL.NEB. NEB PRN (13:48)
[2021-03-09 17:07] LABS: HEP B CORE AB, TOT Negative (Negative)
[2021-03-10] MEDS: NAPH,MB-DB/K PH,MBDB POWDER PACKET PO SCH ×3 (05:47→21:44)
[2021-03-10] MEDS: INSULIN SLIDING SCALE (NOVOLOG) 1 VIAL SQ SCH ×4 (06:01→21:47)
[2021-03-10] MEDS ORDERED: DEXTROSE 5%-WATER 100 ML IVPB ONE (08:32)
[2021-03-10] MEDS: ASPIRIN 81 MG CHEWABLE TABLETS PO SCH (09:03)
[2021-03-10] MEDS: ENOXAPARIN NA (PORCINE) 40 MG/0.4 ML DISP.SYRIN SQ SCH (09:03)
[2021-03-10] MEDS: LACTOBACILLUS ACIDOPHILUS 1 TABLET PO SCH (09:03)
[2021-03-10] MEDS: FUROSEMIDE 40 MG/4 ML INJECTABLE VIAL IVPUSH SCH ×2 (09:03→14:12)
[2021-03-10] MEDS: CEFTRIAXONE 2 GM in DEXTROSE 5%-WATER 2 GM/100 ML BAG IVPB SCH (09:04)
[2021-03-10 10:00] LABS: CALCIUM 7.7 mg/dL (8.5-10.1)
[2021-03-10 10:04] LABS: CREATININE 0.7 mg/dL (0.55-1.3)
[2021-03-10] MEDS ORDERED: INSULIN (NOVOLOG) ASPART 100 UNITS/ML 10ML VIAL ONE ×2 (11:44→17:26)
[2021-03-10] MEDS: ALPRAZolam 0.25 MG TABLET PO PRN (21:44)
[2021-03-11] MEDS: INSULIN SLIDING SCALE (NOVOLOG) 1 VIAL SQ SCH ×4 (06:02→21:19)
[2021-03-11] MEDS: FUROSEMIDE 40 MG/4 ML INJECTABLE VIAL IVPUSH SCH ×2 (06:03→13:24)
[2021-03-11] MEDS: NAPH,MB-DB/K PH,MBDB POWDER PACKET PO SCH ×3 (06:05→21:14)
[2021-03-11] MEDS ORDERED: INSULIN (NOVOLOG) ASPART 100 UNITS/ML 10ML VIAL ONE ×2 (06:35→17:34)
[2021-03-11] MEDS: guaiFENesin/D-M SUGAR-FREE/ACLHOL-FREE 5 ML UNIT DOSE PO PRN ×2 (07:21→13:04)
[2021-03-11] MEDS ORDERED: PT OWN MED DRAWER 7, Y5N ONE ×2 (08:22→13:02)
[2021-03-11 09:09] LABS: ALBUMIN 2.6 g/dl (3.4-5.0); BLOOD UREA NITROGEN 11.6 mg/dL (7-18); CREATININE 0.7 mg/dL (0.55-1.3); PHOSPHOROUS 3.5 mg/dL (2.5-4.9)
[2021-03-11 09:10] LABS: BILIRUBIN,TOTAL 0.4 mg/dL (0.2-1); CALCIUM 8.4 mg/dL (8.5-10.1); TOT PROT 6.3 g/dl (6.4-8.2)
[2021-03-11] MEDS ORDERED: DEXTROSE 5%-WATER 100 ML IVPB ONE (09:26)
[2021-03-11] MEDS: ENOXAPARIN NA (PORCINE) 40 MG/0.4 ML DISP.SYRIN SQ SCH (09:40)
[2021-03-11] MEDS: CEFTRIAXONE 2 GM in DEXTROSE 5%-WATER 2 GM/100 ML BAG IVPB SCH (09:41)
[2021-03-11] MEDS: ASPIRIN 81 MG CHEWABLE TABLETS PO SCH (09:41)
[2021-03-11] MEDS: LACTOBACILLUS ACIDOPHILUS 1 TABLET PO SCH (09:41)
[2021-03-12] MEDS: FUROSEMIDE 40 MG/4 ML INJECTABLE VIAL IVPUSH SCH ×2 (06:09→14:10)
[2021-03-12] MEDS: NAPH,MB-DB/K PH,MBDB POWDER PACKET PO SCH ×3 (06:09→21:28)
[2021-03-12] MEDS: INSULIN SLIDING SCALE (NOVOLOG) 1 VIAL SQ SCH ×4 (06:10→21:28)
[2021-03-12] MEDS: INSULIN (LEVEMIR) 100 UNITS/ML UNITS SQ SCH (06:13)
[2021-03-12] MEDS ORDERED: INSULIN (NOVOLOG) ASPART 100 UNITS/ML 10ML VIAL ONE ×4 (06:36→20:39)
[2021-03-12] MEDS ORDERED: INSULIN (LEVEMIR) 100 UNITS/ML UNITS SQ ONE (06:37)
[2021-03-12] MEDS ORDERED: PT OWN MED DRAWER 7, Y5N ONE (09:09)
[2021-03-12] MEDS ORDERED: DEXTROSE 5%-WATER 100 ML IVPB ONE (09:10)
[2021-03-12] MEDS: CEFTRIAXONE 2 GM in DEXTROSE 5%-WATER 2 GM/100 ML BAG IVPB SCH (09:16)
[2021-03-12] MEDS: ASPIRIN 81 MG CHEWABLE TABLETS PO SCH (09:16)
[2021-03-12] MEDS: LACTOBACILLUS ACIDOPHILUS 1 TABLET PO SCH (09:16)
[2021-03-12] MEDS: ENOXAPARIN NA (PORCINE) 40 MG/0.4 ML DISP.SYRIN SQ SCH (09:18)
[2021-03-12 09:33] LABS: BASO % 0.4 % (0-2.0); EOS % 1.5 % (0-4.5); HEMATOCRIT 31.2 % (35.4-49); HEMOGLOBIN 10.7 GM/dL (11.7-16.9); LYMPH % 21.6 % (8-40); MCHC 34.2 g/dl (32.0-35.9); MEAN PLT VOLUME 7.5 fl (7.5-11.1); MONO % 7.9 % (3.8-10.2); NEUT % 68.6 % (42.8-82.8); PLATELET COUNT 380 10^3/uL (134-434); RBC 3.68 M/mm3 (4.00-5.60); RDW 14.3 % (11.9-15.9); WHITE BLOOD COUNT 8.3 K/mm3 (4.0-10.0)
[2021-03-12 10:00] LABS: CALCIUM 8.6 mg/dL (8.5-10.1)
[2021-03-12 10:02] LABS: BLOOD UREA NITROGEN 12.4 mg/dL (7-18)
[2021-03-12 10:03] LABS: CREATININE 0.8 mg/dL (0.55-1.3)
[2021-03-12 10:53] LABS: ANISOCYTOSIS 1+; MACROCYTOSIS 1+; PLATELET ESTIMATE NORMAL
[2021-03-12] MEDS ORDERED: sitaGLIPtin PHOSPHATE 50 MG TABLET PO SCH (23:54)
[2021-03-13 02:22] VITALS: BMI 36.6
[2021-03-13] MEDS: NAPH,MB-DB/K PH,MBDB POWDER PACKET PO SCH ×2 (05:59→14:23)
[2021-03-13] MEDS: FUROSEMIDE 40 MG/4 ML INJECTABLE VIAL IVPUSH SCH ×2 (05:59→14:23)
[2021-03-13] MEDS: INSULIN (LEVEMIR) 100 UNITS/ML UNITS SQ SCH (06:03)
[2021-03-13] MEDS: INSULIN SLIDING SCALE (NOVOLOG) 1 VIAL SQ SCH ×3 (06:04→16:43)
[2021-03-13] MEDS ORDERED: DEXTROSE 5%-WATER 100 ML IVPB ONE (10:23)
[2021-03-13] MEDS ORDERED: PT OWN MED DRAWER 7, Y5N ONE (10:23)
[2021-03-13] MEDS: ASPIRIN 81 MG CHEWABLE TABLETS PO SCH (10:28)
[2021-03-13] MEDS: LACTOBACILLUS ACIDOPHILUS 1 TABLET PO SCH (10:28)
[2021-03-13] MEDS: CEFTRIAXONE 2 GM in DEXTROSE 5%-WATER 2 GM/100 ML BAG IVPB SCH (10:29)
[2021-03-13] MEDS: ENOXAPARIN NA (PORCINE) 40 MG/0.4 ML DISP.SYRIN SQ SCH (10:30)
[2021-03-13 15:55] VITALS: BP 117/45; PULSE 74; TEMP 97.9
== END 2021-03-13 19:36 | disposition home or self-care (01) | DRG 871 ==
LOC: JER 16:49 → JERBED 21:24 → J8W 03-05 00:49 → JICU 03-05 23:12 → J8W 03-08 14:28
PROVIDERS: ADMIT Internal Medicine; ATTEND Family Medicine
DX: A41.9 Sepsis, unspecified organism (principal); E11.00 Type 2 diabetes mellitus with hyperosmolarity without nonketotic hyperglycemic-hyperosmolar coma (NKHHC); R65.21 Severe sepsis with septic shock; N17.9 Acute kidney failure, unspecified; N39.0 Urinary tract infection, site not specified; J98.11 Atelectasis; J90 Pleural effusion, not elsewhere classified; N45.2 Orchitis; I86.1 Scrotal varices; E78.5 Hyperlipidemia, unspecified; I10 Essential (primary) hypertension; E11.9 Type 2 diabetes mellitus without complications; N20.0 Calculus of kidney; N45.1 Epididymitis; D69.6 Thrombocytopenia, unspecified; D72.829 Elevated white blood cell count, unspecified; E66.9 Obesity, unspecified; Z68.34 Body mass index [BMI] 34.0-34.9, adult; E87.70 Fluid overload, unspecified; E11.40 Type 2 diabetes mellitus with diabetic neuropathy, unspecified; D64.9 Anemia, unspecified; N40.0 Benign prostatic hyperplasia without lower urinary tract symptoms
CPT/HCPCS: 36415; 71045-TC-FY; 71260-TC; 74177-TC; 76700-TC; 76870-TC; 80048; 80053; 80061; 81003; 82550; 82553; 82962; 83036; 83540; 83550; 83605; 83735; 83880; 84100; 84439; 84443; 84484; 85025; 85027; 85379; 85610; 85730; 86704; 86706; 86707; 86708; 86709; 86803; 87040; 87086; 87186; 87340; 93005; 93010; 93306-TC; 93970-TC; 94010; 94640; 99285-25; C9803; J0131; J1439; Q9967; U0003; U0005

== ENCOUNTER 2025-02-08 07:19 | Day surgery (SDC) | payer OTHER ==
[2025-02-07 09:37] VITALS: BMI 32.5
[2025-02-08] MEDS ORDERED: LIDOCAINE VISCOUS 2% ORAL/TOP 15 ML UNIT-DOSE CUP ONE (08:12)
[2025-02-08 09:26] VITALS: RESP 18
[2025-02-08 09:41] VITALS: BP 128/80; PULSE 65
[2025-02-08 13:32] VITALS: TEMP 98
== END 2025-02-08 09:35 | disposition home or self-care (01) ==
LOC: JASU-ENDO 07:19
PROVIDERS: ATTEND Internal Medicine Gastroenterology
PROC: 0DBH8ZX Excision of Cecum, Via Natural or Artificial Opening Endoscopic, Diagnostic (ICD-10-PCS; 2025-02-08)
PROC: 0DB98ZX Excision of Duodenum, Via Natural or Artificial Opening Endoscopic, Diagnostic (ICD-10-PCS; 2025-02-08)
PROC: 0DB78ZX Excision of Stomach, Pylorus, Via Natural or Artificial Opening Endoscopic, Diagnostic (ICD-10-PCS; 2025-02-08)
PROC: 0DB68ZX Excision of Stomach, Via Natural or Artificial Opening Endoscopic, Diagnostic (ICD-10-PCS; 2025-02-08)
PROC: 0DBK8ZX Excision of Ascending Colon, Via Natural or Artificial Opening Endoscopic, Diagnostic (ICD-10-PCS; principal; 2025-02-08 08:00)
DX: Z12.11 Encounter for screening for malignant neoplasm of colon (principal); D64.9 Anemia, unspecified; D12.2 Benign neoplasm of ascending colon; D12.0 Benign neoplasm of cecum; K64.8 Other hemorrhoids; K57.30 Diverticulosis of large intestine without perforation or abscess without bleeding; K29.50 Unspecified chronic gastritis without bleeding; B96.81 Helicobacter pylori [H. pylori] as the cause of diseases classified elsewhere; K31.A11 Gastric intestinal metaplasia without dysplasia, involving the antrum
CPT/HCPCS: 82962; 88305-TC; 88341-TC; 88342-TC

== ENCOUNTER 2025-03-28 13:34 | Inpatient (IN) | payer OTHER ==
[2025-03-28 14:36] LABS: EPI CELLS 21 /uL (0-25.1); HYALINE CASTS 16 /uL (0-3.1); URINE APPEARANCE TURBID; URINE BACTERIA >9,000 /uL (0-1359); URINE BILIRUBIN NEGATIVE (NEGATIVE); URINE COLOR DK YELLOW; URINE GLUCOSE (UA) TRACE (NEGATIVE); URINE KETONE TRACE (NEGATIVE); URINE LEUK ESTERASE 3+ (NEGATIVE); URINE NITRITE NEGATIVE (NEGATIVE); URINE PROTEIN 4+ (NEGATIVE); URINE UROBILINOGEN 1.0 mg/dL (0.2-1.0); URINE WBC 8684 /uL (0-25.8)
[2025-03-28 14:54] LABS: URINE RBC 341.8 /uL (0-23.9)
[2025-03-28 15:10] LABS: ABSOLUTE IMMATURE GRANULOCYTES 0.10 x10^3/uL (0.0-0.031); BASOPHILS # 0.02 x10^3/uL (0.01-0.08); EOSINOPHIL % 0.0 % (0.8-7.0); EOSINOPHILS # 0.00 x10^3/uL (0.04-0.54); MCHC 32.8 g/dl (32.3-36.5); MEAN CELL VOLUME 88.2 fl (79.0-92.2); MEAN PLT VOLUME 11.2 fl (9.4-12.4); MONOCYTE # 1.06 x10^3/uL (0.30-0.82); MONOCYTE % 6.8 % (5.3-12.2); RDW 14.1 % (12.2-16.4)
[2025-03-28 15:31] LABS: CO2 20.0 mmol/L (21-32); GLUCOSE,RANDOM 167.0 mg/dL (74-106); TOT PROT 7.1 g/dl (6.4-8.2)
[2025-03-28 15:33] LABS: ALK PHOS 65.0 U/L (40-150)
[2025-03-28 15:36] LABS: CREATININE 0.81 mg/dL (0.55-1.3); SGOT/AST 28.0 U/L (5-34); SGPT/ALT 24.0 U/L (0-55)
[2025-03-28 15:57] LABS: HCV DIAGNOSTIC IN-HOUSE W/RFLX NON-REACTIVE (NONREACTIVE); HIV INTERPRETATION NEGATIVE (NEGATIVE)
[2025-03-28] MEDS ORDERED: CEFTRIAXONE 1 GM/50 ML BAG ONE (16:54)
[2025-03-28] MEDS: CEFTRIAXONE 1,000 MG in DEXTROSE 5%-WATER - 50 ML IVPB ONE (16:57)
[2025-03-28] MEDS ORDERED: MEROPENEM 1 GM VIAL (RESTRICTED TO ID) IVPB ONE (19:48)
[2025-03-28] MEDS ORDERED: DEXTROSE 5%-WATER 100 ML IVPB ONE (19:49)
[2025-03-28] MEDS: MEROPENEM 1 GM in DEXTROSE 5%-WATER 100 ML IVPB ONE (20:09)
[2025-03-28] MEDS: ATORVASTATIN CA 40 MG TABLET (FP) PO SCH (23:34)
[2025-03-28] MEDS: INSULIN GLARGINE (LANTUS) 100 UNITS/ML UNITS SQ SCH (23:34)
[2025-03-28] MEDS: INSULIN ASPART SLIDING SCALE (NOVOLOG) 1 VIAL SQ SCH (23:35)
[2025-03-29] MEDS ORDERED: ACETAMINOPHEN 325 MG TABLET (FP) PO PRN (01:52)
[2025-03-29] MEDS: MEROPENEM 1 GM in DEXTROSE 5%-WATER 100 ML IVPB SCH (05:27)
[2025-03-29 05:42] VITALS: BMI 33.5
[2025-03-29] MEDS ORDERED: MEROPENEM 1 GM in DEXTROSE 5%-WATER 100 ML IVPB SCH (06:00)
[2025-03-29 06:47] VITALS: RESP 18
[2025-03-29 08:43] LABS: ABSOLUTE IMMATURE GRANULOCYTES 0.12 x10^3/uL (0.0-0.031); BASOPHILS # 0.02 x10^3/uL (0.01-0.08); EOSINOPHIL % 0.0 % (0.8-7.0); EOSINOPHILS # 0.00 x10^3/uL (0.04-0.54); MCHC 32.5 g/dl (32.3-36.5); MEAN CELL VOLUME 87.2 fl (79.0-92.2); MEAN PLT VOLUME 10.8 fl (9.4-12.4); MONOCYTE # 1.26 x10^3/uL (0.30-0.82); MONOCYTE % 8.7 % (5.3-12.2); RDW 13.7 % (12.2-16.4)
[2025-03-29] MEDS: OMEGA-3 ACID ETHYL ESTERS (FATTY-ACIDS) 1 GM CAPSULE (FP) PO SCH (09:19)
[2025-03-29] MEDS: ENOXAPARIN NA (PORCINE) 40 MG/0.4 ML DISP.SYRIN SQ SCH (09:19)
[2025-03-29] MEDS: LOSARTAN POTASSIUM 50 MG TABLET PO SCH (09:19)
[2025-03-29 09:34] LABS: GLUCOSE,RANDOM 150.0 mg/dL (74-106); TOT PROT 6.6 g/dl (6.4-8.2)
[2025-03-29 09:35] LABS: CO2 24.0 mmol/L (21-32)
[2025-03-29 09:37] LABS: ALK PHOS 56.0 U/L (40-150)
[2025-03-29 09:40] LABS: CREATININE 1.01 mg/dL (0.55-1.3); SGOT/AST 17.0 U/L (5-34); SGPT/ALT 20.0 U/L (0-55)
[2025-03-29] MEDS ORDERED: PATIENT'S OWN MEDICATION (NON-FORMULARY) (Olmesartan Medoxomil [Benicar] 20 MG Tablet) PO SCH (10:00)
[2025-03-29] MEDS: SODIUM CHLORIDE 500 ML IV STA (20:46)
[2025-03-29] MEDS: SODIUM CHLORIDE 1,000 ML IV SCH (22:11)
[2025-03-30] MEDS: MEROPENEM 1 GM in DEXTROSE 5%-WATER 100 ML IVPB SCH (03:00)
[2025-03-30 09:23] LABS: MCHC 33.2 g/dl (32.3-36.5); MEAN CELL VOLUME 87.3 fl (79.0-92.2); MEAN PLT VOLUME 10.6 fl (9.4-12.4); RDW 13.6 % (12.2-16.4)
[2025-03-30 09:52] LABS: GLUCOSE,RANDOM 244.0 mg/dL (74-106)
[2025-03-30 09:53] LABS: TOT PROT 6.7 g/dl (6.4-8.2)
[2025-03-30 09:54] LABS: CO2 24.0 mmol/L (21-32)
[2025-03-30 09:56] LABS: ALK PHOS 62.0 U/L (40-150)
[2025-03-30 09:58] LABS: SGOT/AST 21.0 U/L (5-34); SGPT/ALT 22.0 U/L (0-55)
[2025-03-30 09:59] LABS: CREATININE 0.89 mg/dL (0.55-1.3)
[2025-03-30] MEDS: MAGNESIUM OXIDE 400 MG TABLET (FP) PO ONE (12:48)
[2025-03-30 16:07] LABS: EPI CELLS >36 /uL (0-25.1); HYALINE CASTS 0 /uL (0-3.1); URINE APPEARANCE CLOUDY; URINE BACTERIA 141 /uL (0-1359); URINE BILIRUBIN NEGATIVE (NEGATIVE); URINE COLOR YELLOW; URINE GLUCOSE (UA) 2+ (NEGATIVE); URINE KETONE NEGATIVE (NEGATIVE); URINE LEUK ESTERASE 2+ (NEGATIVE); URINE NITRITE NEGATIVE (NEGATIVE); URINE PROTEIN 1+ (NEGATIVE); URINE RBC 13 /uL (0-23.9); URINE UROBILINOGEN 0.2 mg/dL (0.2-1.0); URINE WBC 1326 /uL (0-25.8)
[2025-03-31 09:12] LABS: MCHC 33.1 g/dl (32.3-36.5); MEAN CELL VOLUME 86.6 fl (79.0-92.2); MEAN PLT VOLUME 10.4 fl (9.4-12.4); RDW 13.5 % (12.2-16.4)
[2025-03-31 09:34] LABS: GLUCOSE,RANDOM 276.0 mg/dL (74-106); TOT PROT 6.7 g/dl (6.4-8.2)
[2025-03-31 09:35] LABS: CO2 24.0 mmol/L (21-32)
[2025-03-31 09:37] LABS: ALK PHOS 69.0 U/L (40-150)
[2025-03-31 09:40] LABS: CREATININE 0.72 mg/dL (0.55-1.3); SGOT/AST 48.0 U/L (5-34); SGPT/ALT 58.0 U/L (0-55)
[2025-03-31 11:09] VITALS: BP 125/71; PULSE 92; TEMP 97.9
== END 2025-03-31 15:15 | disposition home or self-care (01) | DRG 690 ==
LOC: JER 13:34 → JERBED 17:23 → OBSVTOIN 18:41 → J6S 21:01
PROVIDERS: ADMIT Family Medicine; ATTEND Family Medicine
DX: N39.0 Urinary tract infection, site not specified (principal); I10 Essential (primary) hypertension; E78.5 Hyperlipidemia, unspecified; E11.9 Type 2 diabetes mellitus without complications; I51.7 Cardiomegaly
CPT/HCPCS: 36415; 74177-TC; 80053; 81003; 82010; 82248; 82436; 82962; 83036; 83735; 83930; 83935; 84100; 84133; 84300; 85025; 85027; 86803; 87040; 87086; 87389; 93005; 93010; 99285-25; G0378; Q9967